=== PATIENT | female | born 1970 | race Caucasian/White ===

== ENCOUNTER 2019-03-08 15:14 | Emergency (ER) | payer OTHER ==
[2019-03-08] MEDS ORDERED: IV NORMAL SALINE 1,000ML 1,000 ML IV SCH (15:48)
--- NOTE | 2019-03-08 15:56 | PHYS DOC ---
Past History Past Medical History: Cancer, Depression, Other Past Surgical History: Hysterectomy, Oophorectomy, Other Smoking: Non-smoker Alcohol Use: Occasionally Drug Use: None Adult General Chief Complaint Chief Complaint: ABDOMINAL PAIN HPI HPI Patient is a 48-year-old female presents complaining of severe lower abdominal pain. It started this morning, it has been waxing and waning. Movement seems to make it a little bit worse. Severe pain on the car ride here. Some nausea without vomiting. No diarrhea. No vaginal bleeding. No dysuria. She does have a history of ovarian, cervical, and uterine cancer and is post hysterectomy. She still has her appendix. She has never had pain like this before. Pain does radiate into her back. She reports it feels like labor pains. She took an ibuprofen 800 mg tablet this morning without any significant improvement in the discomfort.[] Review of Systems Review of Systems Constitutional: Denies fever or chills [] Eyes: Denies change in visual acuity, redness, or eye pain [] HENT: Denies nasal congestion or sore throat [] Respiratory: Denies cough or shortness of breath [] Cardiovascular: No additional information not addressed in HPI [] GI: Denies abdominal pain, nausea, vomiting, bloody stools or diarrhea [] : Denies dysuria or hematuria [] Musculoskeletal: Denies back pain or joint pain [] Integument: Denies rash or skin lesions [] Neurologic: Denies headache, focal weakness or sensory changes [] Endocrine: Denies polyuria or polydipsia [] All other systems were reviewed and found to be within normal limits, except as documented in this note. Allergies Allergies Allergies Coded Allergies Type Severity Reaction Last Updated Verified cephalexin Allergy Unknown 03/08/19 Yes Physical Exam Physical Exam Constitutional: Well developed, well nourished, mild to moderate discomfort, non-toxic appearance. [] HENT: Normocephalic, atraumatic, bilateral external ears normal, oropharynx moist, no oral exudates, nose normal. [] Eyes: PERRLA, EOMI, conjunctiva normal, no discharge. [] Neck: Normal range of motion, no tenderness, supple, no stridor. [] Cardiovascular:Heart rate regular rhythm, no murmur [] Lungs & Thorax: Bilateral breath sounds clear to auscultation [] Abdomen: Bowel sounds normal, soft, tenderness in the lower abdomen, rebound is present, no significant guarding, no rigidity, able to sit up and lay back without any significant difficulty, no masses, no pulsatile masses. [] Skin: Warm, dry, no erythema, no rash. [] Back: No tenderness, no CVA tenderness. [] Extremities: No tenderness, no cyanosis, no clubbing, ROM intact, no edema. [] Neurologic: Alert and oriented X 3, normal motor function, normal sensory function, no focal deficits noted. [] Psychologic: Affect normal, judgement normal, mood normal. [] Current Patient Data Vital Signs Vital Signs Date Time Temp Pulse Resp B/P (MAP) Pulse Ox O2 Delivery O2 Flow Rate FiO2 03/08/19 15:15 98.6 90 18 99 Room Air EKG EKG [] Radiology/Procedures Radiology/Procedures PROCEDURE: CT ABD PELV W/ORAL&IV CONTRAST CT scan of the abdomen and pelvis with contrast 03/08/2019 CLINICAL HISTORY: Severe lower abdominal pain. TECHNIQUE: After the oral and intravenous administration of contrast, contiguous, 5 mm axial sections were obtained through the abdomen and pelvis. 75 cc of Omnipaque 300 were administered intravenously during this examination. One or more of the following individualized dose reduction techniques were utilized for this study: 1. Automated exposure control. 2. Adjustment of the mA and/or kV according to patient size. 3. Use of iterative reconstruction technique. FINDINGS: Comparison study is dated 11/08/2010. Images through the lung bases are within normal limits. A 1.4 cm rounded low-attenuation lesion is seen involving the left lobe of the liver consistent with a hepatic cyst. The spleen, pancreas, adrenal glands and kidneys are within normal limits. Atherosclerotic calcification of the abdominal aorta is seen. The abdominal aorta tapers normally. No free fluid or free air is seen within the abdomen. There is no evidence of bowel obstruction. The appendix is well-visualized and is within normal limits. Multiple diverticula are seen involving the sigmoid colon. Focal wall thickening is seen involving the distal sigmoid colon. Increased density is seen within the adjacent fat. These findings are consistent with acute diverticulitis. No abnormal fluid collection is seen to suggest evidence of an abscess. Images through the pelvis demonstrate the urinary bladder with urine. Calcifications are seen within the pelvis consistent with phleboliths. No free fluid is seen. Minimal S-shaped curvature of the thoracolumbar spine is noted. Degenerative changes are seen involving lower thoracic and throughout the lumbar spine and both hips. IMPRESSION: Findings are seen consistent with sigmoid diverticulitis. No abscess is seen.[] Course & Med Decision Making Course & Med Decision Making Pertinent Labs and Imaging studies reviewed. (See chart for details) ED course: Patient arrived, was placed in bed, and tolerated exam well. She was able to tolerate oral contrast, and was transported to and from [place] with any complications. After the return of the laboratory and imaging findings, these were discussed with the patient and her partner, both of whom voiced understanding. She was given additional doses of pain medicine while in the emergency department as well as antispasmodics. Patient relates that her mother also has a history of diverticulitis. She further relates that she ate popcorn a day or 2 prior to the onset of this discomfort. She was discharged in improved condition with all questions answered. Medical decision making: Patient appears to have diverticulitis without any evidence of an obstruction, no perforation, no abscess, no identified need for surgical intervention. No evidence of kidney stone, renal failure, nor appendicitis.[] Dragon Disclaimer Dragon Disclaimer This electronic medical record was generated, in whole or in part, using a voice recognition dictation system. Departure Departure: Impression: Primary Impression: Diverticulitis Disposition: 01 HOME, SELF-CARE Condition: IMPROVED Referrals: JENN YAÑEZ PA-C (PCP) Follow-up in 2 days Patient Instructions: Diverticulitis Additional Instructions: Drink plenty fluids. Eat a high-fiber diet. Avoid nuts and seeds. Take your medication as prescribed. Follow-up with your regular doctor in 2 days. Return to the ER if worsening pain, unable to tolerate liquids, or any other concerns. Scripts Polyethylene Glycol 3350 (MIRALAX) 119 Gm Powder 17 GM PO DAILY for constipation, #527 GM Prov: BRITNEY ARIAS DO 03/08/19 Metoclopramide Hcl (REGLAN) 10 Mg Tablet 10 MG PO QID for nausea and vomiting, #30 TAB Prov: BRITNEY ARIAS DO 03/08/19 Metronidazole (FLAGYL) 500 Mg Tablet 500 MG PO QID for diverticulitis for 10 Days, #40 TAB Prov: BRITNEY ARIAS DO 03/08/19 Hydrocodone Bit/Acetaminophen (NORCO 5-325 TABLET) 1 Each Tablet 1-2 TAB PO Q4-6HRS for severe pain, #20 TAB Prov: BRITNEY ARIAS DO 03/08/19 Meclizine Hcl (MECLIZINE HCL) 25 Mg Tablet 1 TAB PO PRN TID for vertigo, #30 TAB Prov: BRITNEY ARIAS DO 03/08/19 Hyoscyamine Sulfate (LEVSIN) 0.125 Mg Tablet 0.125 MG PO QID for abdominal pain/cramping, #30 TAB Prov: BRITNEY ARIAS DO 03/08/19 Sulfamethoxazole/Trimethoprim (BACTRIM DS TABLET) 1 Each Tablet 1 TAB PO BID for diverticulitis, #20 TAB Prov: BRITNEY ARIAS DO 03/08/19 BRITNEY ARIAS DO Mar 08, 2019 15:56
[2019-03-08 15:59] LABS: CLARITY,URINE CLEAR; COLOR,URINE YELLOW
[2019-03-08 16:00] LABS: BACTERIA,URINE 0 /HPF (0-FEW); BILIRUBIN,URINE NEG (NEG); GLUCOSE,URINE NEG (NEG); NITRITE,URINE NEG (NEG); RBC,URINE 0 /HPF (0-2); SQUAMOUS EPITHELIAL CELL,UR OCC /LPF; UROBILINOGEN,URINE 0.2 mg/dL (0.2 mg/dL); WBC,URINE OCC /HPF (0-4)
[2019-03-08] MEDS ORDERED: ONDANSETRON PF 4 MG/2 ML VIAL. IV ONE ×2 (16:00→17:30)
[2019-03-08] MEDS: MORPHINE SULFATE 4 MG/ML DISP.SYRIN. IV/SQ PRN ×2 (16:05→17:20)
[2019-03-08 16:10] LABS: BASO # 0.1 x10^3/uL (0.0-0.2); BASO % 1 % (0-3); EOS # 0.1 x10^3/uL (0.0-0.7); EOS % 2 % (0-3); HEMATOCRIT 40.5 % (36.0-47.0); HEMOGLOBIN 13.3 g/dL (12.0-15.5); LYMPH # 1.8 x10^3/uL (1.0-4.8); LYMPH % 23 % (24-48); MEAN CORPUSCULAR HEMOGLOBIN 28 pg (25-35); MEAN CORPUSCULAR HGB CONC 33 g/dL (31-37); MEAN CORPUSCULAR VOLUME 86 fL (79-100); MONO # 0.6 x10^3/uL (0.0-1.1); MONO % 7 % (0-9); NEUT # 5.2 x10^3uL (1.8-7.7); NEUT % 67 % (31-73); PLATELET COUNT 297 x10^3/uL (140-400); RED BLOOD COUNT 4.72 x10^6/uL (3.50-5.40); RED CELL DISTRIBUTION WIDTH 13.9 % (11.5-14.5); WHITE BLOOD COUNT 7.8 x10^3/uL (4.0-11.0)
[2019-03-08] MEDS ORDERED: CONTRAST GIVEN MC PRN (16:15)
[2019-03-08 16:26] LABS: ALBUMIN 4.1 g/dL (3.4-5.0); ALBUMIN/GLOBULIN RATIO 1.3 (1.0-1.7); CALCIUM 8.9 mg/dL (8.5-10.1); CREATININE 0.7 mg/dL (0.6-1.0); GFR 88.9; TOTAL BILIRUBIN 0.3 mg/dL (0.2-1.0); TOTAL PROTEIN 7.3 g/dL (6.4-8.2)
[2019-03-08] MEDS ORDERED: IOHEXOL 300 MG/ML 75 ML VIAL. IV ONE (16:30)
[2019-03-08] MEDS ORDERED: IOHEXOL 240 MG/ML 50ML VIAL. PO ONE (16:30)
--- NOTE | 2019-03-08 17:24 | RAD ---
CT scan of the abdomen and pelvis with contrast 03/08/2019 CLINICAL HISTORY: Severe lower abdominal pain. TECHNIQUE: After the oral and intravenous administration of contrast, contiguous, 5 mm axial sections were obtained through the abdomen and pelvis. 75 cc of Omnipaque 300 were administered intravenously during this examination. One or more of the following individualized dose reduction techniques were utilized for this study: 1. Automated exposure control. 2. Adjustment of the mA and/or kV according to patient size. 3. Use of iterative reconstruction technique. FINDINGS: Comparison study is dated 11/08/2010. Images through the lung bases are within normal limits. A 1.4 cm rounded low-attenuation lesion is seen involving the left lobe of the liver consistent with a hepatic cyst. The spleen, pancreas, adrenal glands and kidneys are within normal limits. Atherosclerotic calcification of the abdominal aorta is seen. The abdominal aorta tapers normally. No free fluid or free air is seen within the abdomen. There is no evidence of bowel obstruction. The appendix is well-visualized and is within normal limits. Multiple diverticula are seen involving the sigmoid colon. Focal wall thickening is seen involving the distal sigmoid colon. Increased density is seen within the adjacent fat. These findings are consistent with acute diverticulitis. No abnormal fluid collection is seen to suggest evidence of an abscess. Images through the pelvis demonstrate the urinary bladder with urine. Calcifications are seen within the pelvis consistent with phleboliths. No free fluid is seen. Minimal S-shaped curvature of the thoracolumbar spine is noted. Degenerative changes are seen involving lower thoracic and throughout the lumbar spine and both hips. IMPRESSION: Findings are seen consistent with sigmoid diverticulitis. No abscess is seen. Electronically signed by: Jason Morgan MD (03/08/2019 5:22 PM) [facility]
[2019-03-08] MEDS ORDERED: METR500T PO (17:41)
[2019-03-08] MEDS ORDERED: SULF1TAB24 PO (17:41)
[2019-03-08] MEDS ORDERED: HYDR-3165 PO (17:41)
[2019-03-08] MEDS ORDERED: HYOS0.1264 PO (17:41)
[2019-03-08] MEDS ORDERED: METO10TA81 PO (17:41)
[2019-03-08] MEDS ORDERED: POLY119P4 PO (17:41)
[2019-03-08] MEDS ORDERED: MECL25TA3 PO (17:41)
[2019-03-08] MEDS ORDERED: HYOSCYAMINE 0.125 MG TAB.RAPDIS PO ONE (17:45)
[2019-03-08] MEDS ORDERED: MELO7.5T29 PO (17:48)
[2019-03-08 18:02] VITALS: BP 110/73
== END 2019-03-08 18:06 | disposition home or self-care (01) ==
LOC: ER 15:14
DX: K57.32 Diverticulitis of large intestine without perforation or abscess without bleeding (principal); F32.9 Major depressive disorder, single episode, unspecified; Z90.710 Acquired absence of both cervix and uterus; Z88.1 Allergy status to other antibiotic agents
CPT/HCPCS: 36415; 74177; 80053; 81001; 83690; 85025; 85610; 96372; 96374; 96375; 96376; 99285; J2270; J2405; Q9966; Q9967; J7030

== ENCOUNTER 2019-05-22 17:17 | Emergency (ER) | payer OTHER ==
[~2019-05-22 17:17] MED LIST: HYDR-3165 PO; HYOS0.1264 PO; MECL25TA3 PO; MELO7.5T29 PO; METO10TA81 PO; METR500T PO; POLY119P4 PO; SULF1TAB24 PO
--- NOTE | 2019-05-22 17:45 | PHYS DOC ---
Past History Past Medical History: Cancer, Depression, Other (BRITNEY ARIAS DO) Past Surgical History: Hysterectomy, Oophorectomy, Other (BRITNEY ARIAS DO) Smoking: Non-smoker Alcohol Use: Occasionally Drug Use: None (BRITNEY ARIAS DO) Adult General Chief Complaint Chief Complaint: LOWER EXT PAIN HPI HPI Patient is a 49-year-old female presents complaining of right lower extremity pain, swelling, and cramping that started last night. Patient has a history of uterine cancer. She has not had any previous history of DVT. No recent surgeries. Feels more like a cramp in nature and moderate discomfort. Denies any trauma. Denies problems walking other than feeling like her leg is twisting in words. She is able to ambulate. No numbness or tingling. Increased pain with movement.[] (BRITNEY ARIAS DO) Review of Systems Review of Systems Constitutional: Denies fever or chills [] Eyes: Denies change in visual acuity, redness, or eye pain [] HENT: Denies nasal congestion or sore throat [] Respiratory: Denies cough or shortness of breath [] Cardiovascular: No chest pain or palpitations[] GI: Denies abdominal pain, nausea, vomiting, bloody stools or diarrhea [] : Denies dysuria or hematuria [] Musculoskeletal: Denies back pain, see history of present illness[] Integument: Denies rash or skin lesions [] Neurologic: Denies headache, focal weakness or sensory changes [] Endocrine: Denies polyuria or polydipsia [] All other systems were reviewed and found to be within normal limits, except as documented in this note. (BRITNEY ARIAS DO) Allergies Allergies Allergies Coded Allergies Type Severity Reaction Last Updated Verified cephalexin Allergy Unknown 03/08/19 Yes (BRITNEY AIRAS DO) Physical Exam Physical Exam Constitutional: Well developed, well nourished, no acute distress, non-toxic appearance. [] HENT: Normocephalic, atraumatic, bilateral external ears normal, oropharynx moist, no oral exudates, nose normal. [] Eyes: PERRLA, EOMI, conjunctiva normal, no discharge. [] Neck: Normal range of motion, no tenderness, supple, no stridor. [] Cardiovascular:Heart rate regular rhythm, no murmur [] Lungs & Thorax: Bilateral breath sounds clear to auscultation [] Abdomen: Bowel sounds normal, soft, no tenderness, no masses, no pulsatile m asses. [] Skin: Warm, dry, no erythema, no rash. [] Back: No tenderness, no CVA tenderness. [] Extremities: Right lower extremity shows some diffuse swelling. She is distally neurovascularly intact. No pain with axial compression of any of the long bones. Mild discomfort with Homans sign. Full active range of motion in the knee, hip, ankle, and toes. Measurement of the right calf is 39 cm circumference. Measurement of the left calf is 39.5 cm circumference. The other 3 external show: No tenderness, no cyanosis, no clubbing, ROM intact, no edema. [] Neurologic: Alert and oriented X 3, normal motor function, normal sensory function, no focal deficits noted. [] Psychologic: Affect normal, judgement normal, mood normal. [] (BRITNEY ARIAS DO) EKG EKG [] (BRITNEY ARIAS DO) Radiology/Procedures Radiology/Procedures [] (BRITNEY ARIAS DO) Impressions: CLINICAL HISTORY: right lower extremity pain and bruising COMPARISON: None available. TECHNIQUE: Ultrasound evaluation of the right leg was performed from the groin to the upper calf with gr scale, spectral and color doppler evaluation. FINDINGS: The right common femoral vein, and femoral vein, including the saphenous-femoral junction are normal in appearance. Color and spectral Doppler evaluation demonstrates normal spontaneous flow, augmentation and phasicity. The right popliteal vein and visualized calf veins also demonstrate normal compressibility and flow. IMPRESSION: No evidence for right lower extremity DVT Electronically signed by: Reggie Long MD (05/22/2019 7:02 PM) [facility] DICTATED AND SIGNED BY: REGGIE LONG MD DATE: 05/22/191901 CC: LISA LANE DO; NATANAEL GUZMAN; BRITNEY ARIAS DO ~ (LISA LNAE DO) Course & Med Decision Making Course & Med Decision Making Pertinent Labs and Imaging studies reviewed. (See chart for details) ED course: Patient arrived, was placed in bed, and tolerated exam well. At the time of this dictation laboratory and imaging findings are still pending. Patient care was endorsed to the nighttime physician at 1800.[] (BRITNEY ARIAS DO) Course & Med Decision Making The patient's labs are unremarkable. The ultrasound was negative for DVT. These results are reassuring to the patient. Based on the bruising on her leg, I'm assuming this was a superficial vessel that ruptured or leaking for some reason. Not sure if this would be the entire cause for the muscle spasm she had, but had no other evidence for why she had muscle spasm or the bruising. She will follow up with her primary care physician as needed. She is stable for discharge at this time. (LISA LANE DO) Dragon Disclaimer Dragon Disclaimer This electronic medical record was generated, in whole or in part, using a voice recognition dictation system. (BRITNEY ARIAS DO) Departure Departure: Impression: Primary Impression: Lower extremity pain Disposition: HOME, SELF-CARE Condition: STABLE Referrals: NATANAEL GUZMAN (PCP) Patient Instructions: Leg Cramps Problem Qualifiers Primary Impression: Lower extremity pain Laterality: right Qualified Codes: M79.604 - Pain in right leg BRITNEY ARIAS DO May 22, 2019 17:[address] DO May 22, 2019 19:09
[2019-05-22 18:11] LABS: BASO % 1 % (0-3); EOS # 0.1 x10^3/uL (0.0-0.7); EOS % 2 % (0-3); HEMATOCRIT 38.5 % (36.0-47.0); HEMOGLOBIN 12.8 g/dL (12.0-15.5); LYMPH # 2.3 x10^3/uL (1.0-4.8); LYMPH % 30 % (24-48); MEAN CORPUSCULAR HEMOGLOBIN 29 pg (25-35); MEAN CORPUSCULAR HGB CONC 33 g/dL (31-37); MEAN CORPUSCULAR VOLUME 87 fL (79-100); MONO # 0.7 x10^3/uL (0.0-1.1); MONO % 9 % (0-9); NEUT # 4.5 x10^3uL (1.8-7.7); NEUT % 58 % (31-73); PLATELET COUNT 291 x10^3/uL (140-400); RED BLOOD COUNT 4.44 x10^6/uL (3.50-5.40); RED CELL DISTRIBUTION WIDTH 14.3 % (11.5-14.5); WHITE BLOOD COUNT 7.7 x10^3/uL (4.0-11.0)
[2019-05-22 18:17] LABS: CALCIUM 8.8 mg/dL (8.5-10.1); CREATININE 0.8 mg/dL (0.6-1.0); GFR 75.9; MAGNESIUM 1.9 mg/dL (1.8-2.4)
[2019-05-22 18:34] VITALS: BP 121/83
--- NOTE | 2019-05-22 19:04 | RAD ---
CLINICAL HISTORY: right lower extremity pain and bruising COMPARISON: None available. TECHNIQUE: Ultrasound evaluation of the right leg was performed from the groin to the upper calf with gr scale, spectral and color doppler evaluation. FINDINGS: The right common femoral vein, and femoral vein, including the saphenous-femoral junction are normal in appearance. Color and spectral Doppler evaluation demonstrates normal spontaneous flow, augmentation and phasicity. The right popliteal vein and visualized calf veins also demonstrate normal compressibility and flow. IMPRESSION: No evidence for right lower extremity DVT Electronically signed by: Reggie Jacobsen MD (05/22/2019 7:02 PM) [facility]
== END 2019-05-22 19:25 | disposition home or self-care (01) ==
LOC: ER 17:23
DX: M79.604 Pain in right leg (principal); R22.41 Localized swelling, mass and lump, right lower limb; Z88.1 Allergy status to other antibiotic agents
CPT/HCPCS: 36415; 80048; 83735; 85025; 85610; 85730; 93971; 99285

== ENCOUNTER 2019-10-12 16:40 | Emergency (ER) | payer OTHER ==
[~2019-10-12 16:40] MED LIST changes: +MECL-75 PO; -MECL25TA3 PO
[2019-10-12] MEDS ORDERED: IV NORMAL SALINE 1,000ML 1,000 ML IV ONE (17:00)
--- NOTE | 2019-10-12 17:37 | PHYS DOC ---
Past History Past Medical History: Cancer, Depression Past Surgical History: Cancer Surgery Smoking: Non-smoker Alcohol Use: None Drug Use: None Adult General Chief Complaint Chief Complaint: RAPID HEART RATE HPI HPI 49-year-old female presents with rapid heart beat and abdominal pain. She recently had an ileostomy and reversal. She went to see her primary doctor because she was having increasing lower abdominal pain. There were concerned for potential infection. She did not get CT yet due to preapproval requirement. She presents emergency room today because she started to have extremely high heart rate 2 hours ago. She was just sitting on the couch when this started. She has no history of previous high heart rates. No history of arrhythmia. She denies fever or chills. The patient did have a significant infection the past with no fever. Review of Systems Review of Systems Constitutional: Denies fever or chills [] Eyes: Denies change in visual acuity, redness, or eye pain [] HENT: Denies nasal congestion or sore throat [] Respiratory: Denies cough or shortness of breath [] Cardiovascular: No additional information not addressed in HPI [] GI: Lower abdominal pain. Denies nausea, vomiting, bloody stools or diarrhea [] : Denies dysuria or hematuria [] Musculoskeletal: Denies back pain or joint pain [] Integument: Denies rash or skin lesions [] Neurologic: Denies headache, focal weakness or sensory changes [] Endocrine: Denies polyuria or polydipsia [] All other systems were reviewed and found to be within normal limits, except as documented in this note. Current Medications Current Medications Current Medications Medications (Trade) Dose Ordered Sig/[facility] Start Time Stop Time Status Last Admin Dose Admin Sodium Chloride 1,000 ml @ 1,000 mls/hr 1X ONCE 10/12/19 17:00 10/12/19 17:59 Allergies Allergies Allergies Coded Allergies Type Severity Reaction Last Updated Verified cephalexin Allergy Unknown 03/08/19 Yes Physical Exam Physical Exam Constitutional: Well developed, well nourished, mild acute distress, non-toxic appearance. [] HENT: Normocephalic, atraumatic, bilateral external ears normal, oropharynx moist, no oral exudates, nose normal. [] Eyes: PERRLA, EOMI, conjunctiva normal, no discharge. [] Neck: Normal range of motion, no tenderness, supple, no stridor. [] Cardiovascular:Heart rate regular rhythm, no murmur [] Lungs & Thorax: Bilateral breath sounds clear to auscultation [] Abdomen: Bowel sounds normal, soft, lower quadrant tenderness, no masses, no pulsatile masses. [] Skin: Warm, dry, no erythema, no rash. [] Back: No tenderness, no CVA tenderness. [] Extremities: No tenderness, no cyanosis, no clubbing, ROM intact, no edema. [] Neurologic: Alert and oriented X 3, normal motor function, normal sensory function, no focal deficits noted. [] Psychologic: Affect normal, judgement normal, mood normal. [] EKG EKG Sinus tachycardia, rate 124, normal axis, no ST elevations or depressions.[] Radiology/Procedures Radiology/Procedures [] Impressions: Study: CT abdomen/pelvis with intravenous contrast Indication: Lower abdominal pain status post ileostomy reversal. Comparison: 03/08/2019 Technique: Helical CT imaging performed of the abdomen and pelvis after the intravenous administration of 75 cc Omnipaque 300 contrast. Sagittal and coronal reformats were obtained. One or more of the following individualized dose reduction techniques were utilized for this examination: 1. Automated exposure control 2. Adjustment of the mA and/or kV according to patient size 3. Use of iterative reconstruction technique. Findings: Unremarkable lower lungs and visualized heart. Unchanged low-attenuation focus within the left hepatic lobe. Unremarkable gallbladder. No abnormality seen to involve the pancreas, spleen or adrenal glands. No newly seen abnormality of the kidneys. No hydroureteronephrosis. Unremarkable urinary bladder. The uterus is absent. No adnexal mass. Small amount of air within the vaginal cuff, image 68 series 2, felt unlikely related to fistulization with the adjacent colon though this is not entirely excluded. Distal colonic anastomosis. Small bowel anastomosis at the pelvis. Surgical changes along the stomach. No findings of small bowel obstruction. The small bowel is thick-walled in the region of the anastomosis with surrounding inflammatory changes such as seen on image 61 series 2. Small foci of air extend along suture material such as seen on images 59 and 60 series 2. No fluid collection seen at this location. Minimal wall thickening of the sigmoid colon adjacent to the mildly thick-walled small bowel. A few diverticuli are noted without findings of diverticulitis. No colonic obstruction, pneumatosis or perforation. Mild scattered vascular calcifications. A few subcentimeter mesenteric lymph nodes do not meet pathologic criteria based on size. No free pelvic fluid. Right lower quadrant ventral subcutaneous fat stranding likely scarring/mild residual inflammation at the site of prior ileostomy. No acute osseous abnormality. Scattered degenerative changes. Impression: 1. Sequela of ileostomy reversal. At the small bowel anastomosis within the pelvis, there is localized inflammatory changes, segmental small bowel wall thickening and small foci of air extending along suture material. No free fluid or fluid collection. Given reported surgery on September 14, the small foci of air with surrounding inflammatory changes at the anastomosis could potentially represent a contained perforation. It is possible however that the air is within a neck of small bowel that was partially excluded during the anastomosis. The adjacent colon exhibits scattered diverticuli but without findings to suggest diverticulitis. No small bowel obstruction. 2. Surgical changes of the stomach without complicating features. 3. Additional chronic findings as detailed in the body of the report. Electronically signed by: SARA BLACK MD (10/12/2019 6:51 PM) [facility] DICTATED AND SIGNED BY: SARA BLACK MD DATE: 10/12/191850 CC: LISA LANE DO; NATANAEL GUZMAN ~ Course & Med Decision Making Course & Med Decision Making Pertinent Labs and Imaging studies reviewed. (See chart for details) The patient's workup is pending. I'm signing the patient out to Dr. Ordoñez at 1830. [] Dragon Disclaimer Dragon Disclaimer This electronic medical record was generated, in whole or in part, using a voice recognition dictation system. Departure Departure: Disposition: HOME/RESIDENCE PRIOR TO ADM Condition: STABLE Referrals: NATANAEL GUZMAN (PCP) LISA LANE DO Oct 12, 2019 17:37
[2019-10-12] MEDS ORDERED: IOHEXOL 300 MG/ML 75 ML VIAL. IV ONE (17:45)
[2019-10-12] MEDS ORDERED: ONDANSETRON PF 4 MG/2 ML VIAL. IVP ONE (18:00)
[2019-10-12] MEDS ORDERED: HYDROmorphone PF 1 MG/ML DISP.SYRIN IV ONE (18:00)
[2019-10-12 18:26] LABS: BASO # 0.1 x10^3/uL (0.0-0.2); BASO % 1 % (0-3); EOS # 0.1 x10^3/uL (0.0-0.7); EOS % 1 % (0-3); HEMATOCRIT 40.5 % (36.0-47.0); HEMOGLOBIN 12.9 g/dL (12.0-15.5); LYMPH # 1.4 x10^3/uL (1.0-4.8); LYMPH % 23 % (24-48); MEAN CORPUSCULAR HEMOGLOBIN 27 pg (25-35); MEAN CORPUSCULAR HGB CONC 32 g/dL (31-37); MEAN CORPUSCULAR VOLUME 85 fL (79-100); MONO # 0.4 x10^3/uL (0.0-1.1); MONO % 7 % (0-9); NEUT # 4.3 x10^3uL (1.8-7.7); NEUT % 68 % (31-73); PLATELET COUNT 265 x10^3/uL (140-400); RED BLOOD COUNT 4.78 x10^6/uL (3.50-5.40); RED CELL DISTRIBUTION WIDTH 13.6 % (11.5-14.5); WHITE BLOOD COUNT 6.4 x10^3/uL (4.0-11.0)
[2019-10-12 18:35] LABS: CALCIUM 9.2 mg/dL (8.5-10.1); CREATININE 0.7 mg/dL (0.6-1.0); GFR 88.6; POTASSIUM 3.2 mmol/L (3.5-5.1)
[2019-10-12 18:41] LABS: ALBUMIN 3.7 g/dL (3.4-5.0); ALBUMIN/GLOBULIN RATIO 1.2 (1.0-1.7); TOTAL BILIRUBIN 0.3 mg/dL (0.2-1.0); TOTAL PROTEIN 6.7 g/dL (6.4-8.2)
--- NOTE | 2019-10-12 18:54 | RAD ---
Study: CT abdomen/pelvis with intravenous contrast Indication: Lower abdominal pain status post ileostomy reversal. Comparison: 03/08/2019 Technique: Helical CT imaging performed of the abdomen and pelvis after the intravenous administration of 75 cc Omnipaque 300 contrast. Sagittal and coronal reformats were obtained. One or more of the following individualized dose reduction techniques were utilized for this examination: 1. Automated exposure control 2. Adjustment of the mA and/or kV according to patient size 3. Use of iterative reconstruction technique. Findings: Unremarkable lower lungs and visualized heart. Unchanged low-attenuation focus within the left hepatic lobe. Unremarkable gallbladder. No abnormality seen to involve the pancreas, spleen or adrenal glands. No newly seen abnormality of the kidneys. No hydroureteronephrosis. Unremarkable urinary bladder. The uterus is absent. No adnexal mass. Small amount of air within the vaginal cuff, image 68 series 2, felt unlikely related to fistulization with the adjacent colon though this is not entirely excluded. Distal colonic anastomosis. Small bowel anastomosis at the pelvis. Surgical changes along the stomach. No findings of small bowel obstruction. The small bowel is thick-walled in the region of the anastomosis with surrounding inflammatory changes such as seen on image 61 series 2. Small foci of air extend along suture material such as seen on images 59 and 60 series 2. No fluid collection seen at this location. Minimal wall thickening of the sigmoid colon adjacent to the mildly thick-walled small bowel. A few diverticuli are noted without findings of diverticulitis. No colonic obstruction, pneumatosis or perforation. Mild scattered vascular calcifications. A few subcentimeter mesenteric lymph nodes do not meet pathologic criteria based on size. No free pelvic fluid. Right lower quadrant ventral subcutaneous fat stranding likely scarring/mild residual inflammation at the site of prior ileostomy. No acute osseous abnormality. Scattered degenerative changes. Impression: 1. Sequela of ileostomy reversal. At the small bowel anastomosis within the pelvis, there is localized inflammatory changes, segmental small bowel wall thickening and small foci of air extending along suture material. No free fluid or fluid collection. Given reported surgery on September 14, the small foci of air with surrounding inflammatory changes at the anastomosis could potentially represent a contained perforation. It is possible however that the air is within a neck of small bowel that was partially excluded during the anastomosis. The adjacent colon exhibits scattered diverticuli but without findings to suggest diverticulitis. No small bowel obstruction. 2. Surgical changes of the stomach without complicating features. 3. Additional chronic findings as detailed in the body of the report. Electronically signed by: SARA BLACK MD (10/12/2019 6:51 PM) [facility] [place]
[2019-10-12] MEDS ORDERED: METOCLOPRAMIDE HCL 10 MG/2 ML VIAL. IV ONE (21:00)
[2019-10-12] MEDS ORDERED: diphenhydrAMINE 50 MG/ML VIAL IVP ONE (21:00)
[2019-10-12] MEDS ORDERED: PIPERACILLIN/TAZOBACTAM 3.375 GM in IV NORMAL SALINE 50ML 50 ML IV ONE (21:15)
[2019-10-12 22:39] VITALS: BP 96/55
--- NOTE | 2019-10-13 00:53 | EKG ---
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
== END 2019-10-12 22:59 | disposition short-term general hospital (02) ==
LOC: ER 16:40
DX: K63.1 Perforation of intestine (nontraumatic) (principal); F32.9 Major depressive disorder, single episode, unspecified; Z88.1 Allergy status to other antibiotic agents
CPT/HCPCS: 36415; 74177; 80053; 83605; 84484; 85025; 93005; 96365; 96366; 96375; 99285; J1170; J1200; J2405; J2543; J2765; J3010; Q9967; J7030

== ENCOUNTER 2021-03-06 15:05 | Emergency (ER) | payer OTHER ==
[~2021-03-06] VITALS: Ht 165.1 cm; Wt 80.1 kg
[2021-03-06] MEDS ORDERED: HYDROmorphone PF 1 MG/ML DISP.SYRIN ONE (15:48)
[2021-03-06] MEDS ORDERED: IOHEXOL 300 MG/ML 75 ML VIAL. IV ONE (16:00)
[2021-03-06] MEDS ORDERED: HYDROmorphone PF 1 MG/ML DISP.SYRIN IVP ONE ×2 (16:00→16:30)
[2021-03-06] MEDS ORDERED: CONTRAST GIVEN. MC PRN (16:00)
[2021-03-06 16:04] LABS: BASO # 0.1 x10^3/uL (0.0-0.2); BASO % 1 % (0-3); EOS # 0.1 x10^3/uL (0.0-0.7); EOS % 1 % (0-3); HEMATOCRIT 39.2 % (36.0-47.0); HEMOGLOBIN 13.1 g/dL (12.0-15.5); LYMPH # 1.9 x10^3/uL (1.0-4.8); LYMPH % 21 % (24-48); MEAN CORPUSCULAR HEMOGLOBIN 30 pg (25-35); MEAN CORPUSCULAR HGB CONC 33 g/dL (31-37); MEAN CORPUSCULAR VOLUME 88 fL (79-100); MONO # 0.7 x10^3/uL (0.0-1.1); MONO % 8 % (0-9); NEUT # 6.2 x10^3uL (1.8-7.7); NEUT % 69 % (31-73); PLATELET COUNT 259 x10^3/uL (140-400); RED BLOOD COUNT 4.43 x10^6/uL (3.50-5.40); RED CELL DISTRIBUTION WIDTH 14.1 % (11.5-14.5); WHITE BLOOD COUNT 8.9 x10^3/uL (4.0-11.0)
[2021-03-06 16:13] LABS: BILIRUBIN,URINE NEG (NEG); CLARITY,URINE CLEAR; COLOR,URINE YELLOW; GLUCOSE,URINE NEG (NEG); NITRITE,URINE NEG (NEG); UROBILINOGEN,URINE 0.2 mg/dL (0.2 mg/dL)
[2021-03-06 16:14] LABS: BACTERIA,URINE 0 /HPF (0-FEW); CALCIUM 9.2 mg/dL (8.5-10.1); CREATININE 0.6 mg/dL (0.6-1.0); GFR 105.4; POTASSIUM 5.2 mmol/L (3.5-5.1); RBC,URINE 0 /HPF (0-2); SQUAMOUS EPITHELIAL CELL,UR OCC /LPF; WBC,URINE 0 /HPF (0-4)
[2021-03-06 16:20] LABS: ALBUMIN/GLOBULIN RATIO 1.3 (1.0-1.7); TOTAL BILIRUBIN 0.6 mg/dL (0.2-1.0); TOTAL PROTEIN 7.2 g/dL (6.4-8.2)
[2021-03-06] MEDS ORDERED: ONDANSETRON PF 4 MG/2 ML VIAL. IVP ONE (16:30)
[2021-03-06] MEDS ORDERED: ONDANSETRON PF 4 MG/2 ML VIAL. ONE (16:31)
--- NOTE | 2021-03-06 16:51 | RAD ---
Exam: CT abdomen/pelvis with intravenous contrast Indication: Severe right upper quadrant pain, right flank pain. History of colon and small bowel rese ction. Cervical cancer. Comparison: CT abdomen pelvis 10/12/2019 Technique: Helical CT imaging performed of the abdomen and pelvis after the intravenous administratio n of contrast. Sagittal and coronal reformats were obtained. One or more of the following individualized dose reduction techniques were utilized for this examinat ion: 1. Automated exposure control 2. Adjustment of the mA and/or kV according to patient size 3. Use of iterative reconstruction technique. Findings: Lower chest: Mild atelectasis in the lung bases. Heart is normal in size. Liver: There is a 1.8 cm fluid density cyst in the left hepatic lobe. A 4 mm hypodensity in the poste rior right hepatic lobe is too small to characterize. Gallbladder/Biliary Tree: Vague hyperdense material layering in the gallbladder suspicious for sludge . Bile ducts are within normal limits. Pancreas: Normal. Spleen: Normal. Adrenal Glands: Normal. Kidneys/Ureters/Bladder: Kidneys, ureters, and bladder are normal. There are bilateral peripelvic cys ts. Reproductive Organs: Uterus is surgically absent. No adnexal mass Stomach, small bowel, and colon: There are surgical changes of sleeve gastrectomy. The small bowel is normal. Surgical changes of the colon with an anastomosis in the cecum and in the rectum. Vasculature: Abdominal aorta is normal in caliber. Lymph Nodes: No lymphadenopathy. Peritoneum and retroperitoneum: No free fluid or free air. Bones: No acute osseous abnormality. Miscellaneous: There is a new large ventral hernia with a 6.7 cm opening containing normal-appearing loops of small bowel. No evidence of complication. There is soft tissue scarring in the right lower q uadrant from previous ileostomy. Impression: 1. No acute abnormality in the abdomen and pelvis. 2. New large ventral hernia containing loops of small bowel. No evidence of bowel obstruction or oth er acute complication. 3. Probable sludge in the gallbladder. 4. Surgical changes of the stomach, small bowel, and colon. 5. Probable hepatic cysts. Electronically signed by: Laney Lai MD (03/06/2021 4:49 PM) [id number]
--- NOTE | 2021-03-06 16:52 | EKG ---
[address] [address] Test Date: 2021-03-06 Test Time: 16:19:55 Pat Name: EPIFANIO VÁSQUEZ Department: Room: Gender: F Information Assurance: LINH : 1970 Requested By: JUAN AMADO Order Number: [id number] Reading MD: Measurements Intervals [place] Rate: 73 P: 49 NV: 126 QRS: 6 QRSD: 94 T: 0 QT: 402 QTc: 447 Interpretive Statements SINUS RHYTHM LOW LIMB LEAD VOLTAGE T ABNORMALITY IN INFERIOR LEADS ABNORMAL ECG RI6.02 No previous ECG available for comparison
--- NOTE | 2021-03-06 17:02 | PHYS DOC ---
Past History Past Medical History: Cancer, Depression, Diverticulitis, Other Additional Past Medical Histor: colonic abscess with adhesions Past Surgical History: Appendectomy, Cancer Surgery, Other Additional Past Surgical Histo: ileostomy, ileostomy reversal Smoking: Non-smoker Alcohol Use: Rarely Drug Use: None Adult General Chief Complaint Chief Complaint: FLANK PAIN HPI HPI Patient is a 50-year-old female presenting for right flank pain. Onset was yesterday without any known inciting event or trauma. Reports she was celebrating holiday weekend and drank x2 beers and x1 glass of wine which she admits is more than she typically ever drinks. Nonetheless, she reports having right flank pain that radiates around to anterior abdomen. Nothing known makes better, deep breaths in, palpation under right rib cage, and certain movements make worse. Timing of symptoms has been constant since onset and exacerbated by factors just mention. Pain is sharp and 10/10 severity in nature. Admits complicated abdominal history, had prior diverticulitis with complications that ultimately required surgical fixation and ileostomy. This surgery course was co mplicated as she developed small bowel obstruction and subsequently had appendectomy during same procedure. Has known midline hernia for which she sees Dr. Martin at [facility] in outpatient setting and has plans for outpatient surgical repair March 24. No fever, dizziness, vision changes, chest pain, ripping or tearing sensation in chest, dysuria, vaginal bleeding Review of Systems Review of Systems Fourteen body systems of review of systems have been reviewed. See HPI for pertinent positives and negative responses, other olvera all other systems are negative, non-pertinent or non-contributory Current Medications Current Medications Current Medications Medications (Trade) Dose Ordered Sig/[facility] Start Time Stop Time Status Last Admin Dose Admin Fentanyl Citrate (Fentanyl 2ml Vial) 100 mcg STK-MED ONCE 03/06/21 16:23 03/06/21 16:24 DC Hydromorphone HCl (Dilaudid) 0.5 mg 1X ONCE 03/06/21 16:30 03/06/21 16:31 DC 03/06/21 16:00 0.5 MG Info (Do NOT chart on this entry -- for MONITORING) 1 each PRN DAILY PRN 03/06/21 16:00 03/08/21 15:59 Iohexol (Omnipaque 300 Mg/ml) 75 ml 1X ONCE 03/06/21 16:00 03/06/21 16:01 DC 03/06/21 16:16 75 ML Ondansetron HCl (Zofran) 4 mg STK-MED ONCE 03/06/21 16:31 03/06/21 16:31 DC Allergies Allergies Allergies Coded Allergies Type Severity Reaction Last Updated Verified cephalexin Allergy Unknown 03/08/19 Yes Physical Exam Physical Exam Constitutional: Well developed, well nourished, tearful and appears in significant pain HENT: Normocephalic, atraumatic, bilateral external ears normal, oropharynx dry, no oral exudates, nose normal. Eyes: PERRLA, EOMI, conjunctiva normal, no discharge. Neck: Normal range of motion, no tenderness, supple, no stridor. Cardiovascular: Heart rate regular, sinus rhythm, no murmurs rubs or gallops Lungs & Thorax: Bilateral breath sounds clear to auscultation Abdomen: Bowel sounds normal, soft, positive Escamilla sign with guarding present, no rebound, midline ventral hernia present without pulsatile masses. Nonsurgical abdomen, no peritoneal signs Skin: Warm, dry, no erythema, no rash. Back: No tenderness, right CVA tenderness Extremities: No tenderness, no cyanosis, no clubbing, ROM intact, no edema. Neurologic: Alert and oriented X 3, grossly normal motor & sensory function, no focal deficits noted. Psychologic: Tearful affect, judgement normal, mood normal. Current Patient Data Vital Signs Vital Signs Date Time Temp Pulse Resp B/P (MAP) Pulse Ox O2 Delivery O2 Flow Rate FiO2 03/06/21 16:25 94 Room Air 03/06/21 15:58 99.0 76 20 149/86 (107) Lab Results Laboratory Tests Test 03/06/21 15:30 White Blood Count 8.9 x10^3/uL (4.0-11.0) Red Blood Count 4.43 x10^6/uL (3.50-5.40) Hemoglobin 13.1 g/dL (12.0-15.5) Hematocrit 39.2 % (36.0-47.0) Mean Corpuscular Volume 88 fL (79-100) Mean Corpuscular Hemoglobin 30 pg (25-35) Mean Corpuscular Hemoglobin Concent 33 g/dL (31-37) Red Cell Distribution Width 14.1 % (11.5-14.5) Platelet Count 259 x10^3/uL (140-400) Neutrophils (%) (Auto) 69 % (31-73) Lymphocytes (%) (Auto) 21 % (24-48) L Monocytes (%) (Auto) 8 % (0-9) Eosinophils (%) (Auto) 1 % (0-3) Basophils (%) (Auto) 1 % (0-3) Neutrophils # (Auto) 6.2 x10^3uL (1.8-7.7) Lymphocytes # (Auto) 1.9 x10^3/uL (1.0-4.8) Monocytes # (Auto) 0.7 x10^3/uL (0.0-1.1) Eosinophils # (Auto) 0.1 x10^3/uL (0.0-0.7) Basophils # (Auto) 0.1 x10^3/uL (0.0-0.2) Urine Collection Type Unknown Urine Color Yellow Urine Clarity Clear Urine pH 6.0 Urine Specific [place] <=1.005 Urine Protein Neg (NEG-TRACE) Urine Glucose (UA) Neg mg/dL (NEG) Urine Ketones (Stick) Neg mg/dL (NEG) Urine Blood Trace (NEG) Urine Nitrite Neg (NEG) Urine Bilirubin Neg (NEG) Urine Urobilinogen Dipstick 0.2 mg/dL (0.2 mg/dL) Urine Leukocyte Esterase Neg (NEG) Urine RBC 0 /HPF (0-2) Urine WBC 0 /HPF (0-4) Urine Squamous Epithelial Cells Occ /LPF Urine Bacteria 0 /HPF (0-FEW) Sodium Level 141 mmol/L (136-145) Potassium Level 5.2 mmol/L (3.5-5.1) H Chloride Level 104 mmol/L (98-107) Carbon Dioxide Level 29 mmol/L (21-32) Anion Gap 8 (6-14) Blood Urea Nitrogen 17 mg/dL (7-20) Creatinine 0.6 mg/dL (0.6-1.0) Estimated GFR (Cockcroft-Gault) 105.4 BUN/Creatinine Ratio 28 (6-20) H Glucose Level 101 mg/dL (70-99) H Calcium Level 9.2 mg/dL (8.5-10.1) Total Bilirubin 0.6 mg/dL (0.2-1.0) Aspartate Amino Transferase (AST) 19 U/L (15-37) Alanine Aminotransferase (ALT) 16 U/L (14-59) Alkaline Phosphatase 94 U/L (46-116) Troponin I Quantitative < 0.017 ng/mL (0-0.055) Total Protein 7.2 g/dL (6.4-8.2) Albumin 4.0 g/dL (3.4-5.0) Albumin/Globulin Ratio 1.3 (1.0-1.7) Lipase 61 U/L (73-393) L EKG EKG EKG ordered and interpreted by myself 1625 hrs. as sinus rhythm at 73 bpm, no axis deviation, no STEMI Radiology/Procedures Radiology/Procedures Exam: CT abdomen/pelvis with intravenous contrast Indication: Severe right upper quadrant pain, right flank pain. History of colon and small bowel resection. Cervical cancer. Comparison: CT abdomen pelvis 10/12/2019 Technique: Helical CT imaging performed of the abdomen and pelvis after the intravenous administration of contrast. Sagittal and coronal reformats were obtained. One or more of the following individualized dose reduction techniques were utilized for this examination: 1. Automated exposure control 2. Adjustment of the mA and/or kV according to patient size 3. Use of iterative reconstruction technique. Findings: Lower chest: Mild atelectasis in the lung bases. Heart is normal in size. Liver: There is a 1.8 cm fluid density cyst in the left hepatic lobe. A 4 mm hypodensity in the posterior right hepatic lobe is too small to characterize. Gallbladder/Biliary Tree: Vague hyperdense material layering in the gallbladder suspicious for sludge. Bile ducts are within normal limits. Pancreas: Normal. Spleen: Normal. Adrenal Glands: Normal. Kidneys/Ureters/Bladder: Kidneys, ureters, and bladder are normal. There are bilateral peripelvic cysts. Reproductive Organs: Uterus is surgically absent. No adnexal mass Stomach, small bowel, and colon: There are surgical changes of sleeve gastrectomy. The small bowel is normal. Surgical changes of the colon with an anastomosis in the cecum and in the rectum. Vasculature: Abdominal aorta is normal in caliber. Lymph Nodes: No lymphadenopathy. Peritoneum and retroperitoneum: No free fluid or free air. Bones: No acute osseous abnormality. Miscellaneous: There is a new large ventral hernia with a 6.7 cm opening containing normal-appearing loops of small bowel. No evidence of complication. There is soft tissue scarring in the right lower quadrant from previous ileostomy. Impression: 1. No acute abnormality in the abdomen and pelvis. 2. New large ventral hernia containing loops of small bowel. No evidence of bowel obstruction or other acute complication. 3. Probable sludge in the gallbladder. 4. Surgical changes of the stomach, small bowel, and colon. 5. Probable hepatic cysts. Electronically signed by: Laney Lai MD (03/06/2021 4:49 PM) [id number] ////////////// Study: XR CHEST 1V Indication: Shortness of breath. Comparison: None. Findings: Mild basilar volume loss. No confluent infiltrate, layering effusion or pneumothorax. The cardiomediastinal silhouette and brianna are within normal limits. Impression: Mild basilar volume loss. No lobar consolidation or pneumothorax. Electronically signed by: SARA BLACK MD (03/06/2021 5:43 PM) [facility] /////////////// Examination: Ultrasound abdomen limited HISTORY: History of right upper quadrant pain COMPARISON: None available FINDINGS: The liver length measures 16.8 cm. Cystic structure identified in the left lobe of the liver measuring 1.9 cm likely cyst. The gallbladder wall thickness measures 1.4 mm. The common bile duct measures 4 mm in transverse dimension. The gallbladder is mildly distended. No evidence of gallstones identified. The right kidney measures 11.2 x 4.0 x 4.8 cm. Minimal prominent right renal pelvis could be prominent extrarenal pelvis or mild hydronephrosis. The pancreas, aorta, IVC are not well-visualized due to bowel gas. IMPRESSION: 1. No evidence of gallstones. 2. Mild prominent right renal pelvis could be hydronephrosis or extrarenal pelvis. Electronically signed by: Terry Velez MD (03/06/2021 6:03 PM) [id number] Heart Score C/O Chest Pain: No HEART Score for Chest Pain: HEART Score for Chest Pain Response (Comments) Value History Slighlty/Non-Suspicious 0 ECG Normal 0 Age >45 - < 65 1 Risk Factors 1 or 2 Risk Factors 1 Troponin < Normal Limit 0 Total 2 Risk Factors: Risk Factors: DM, Current or recent (<one month) smoker, HTN, HLP, family history of CAD, obesity. Risk Scores: Risk Factors: DM, Current or recent (<one month) smoker, HTN, HLP, family history of CAD, obesity. Course & Med Decision Making Course & Med Decision Making Hemodynamically stable with HPI concerning for prior complicated intra-abdominal issues, physical exam nonconcerning for an acute abdomen Comprehensive ER work-up obtained concerning for ventral hernia otherwise no emergent or surgical issues readily present. With that said, patient's pain and overall clinical picture did not improve with ER intervention that included 1 mg IV Dilaudid and a total of 150mcg Fentanyl I contacted Dr. Stout, surgeon at [facility] and reviewed ER imaging and abdominal exam. He agreed need for hospital transfer for admission for serial abdominal exams, pain control and examination in the morning unless something changes in the interim I contacted hospitalist, Dr. Fischer at [facility] and discussed need for transfer, he agreed and accepted patient under his care I updated patient and at bedside on proposed plan of care that included hospital transfer for continued IV fluid, IV pain control, n.p.o. status and serial abdominal exams with surgery consultation. They were amenable. All questions and concerns addressed prior to ER transfer Critical Care Time This patient required critical care. Due to the fact that the patient required a significant amount of one on one physician - patient contact time, ordering and review of studies, arranging urgent treatment with development of a management plan, evaluation of patients response to treatment with frequent reassessments, and discussions with other providers this patient required 50 minutes of critical care time. Critical care time was indicated due to the inherent instab ility and/or potential for instability in this patient. The critical care time that is allocated to this patient is above and beyond any time spent on any other billable procedures performed on this patient. Dragon Disclaimer Dragon Disclaimer This electronic medical record was generated, in whole or in part, using a voice recognition dictation system. Departure Departure: Impression: Primary Impression: Abdominal pain Additional Impressions: Ventral hernia without obstruction or gangrene History of diverticulitis History of ileostomy Disposition: 02 [facility] ([facility]) Admitting Physician: Brian Fischer Condition: STABLE Referrals: NATANAEL GUZMAN (PCP) Problem Qualifiers JUAN AMADO DO Mar 06, 2021 17:02
--- NOTE | 2021-03-06 17:45 | RAD ---
Study: XR CHEST 1V Indication: Shortness of breath. Comparison: None. Findings: Mild basilar volume loss. No confluent infiltrate, layering effusion or pneumothorax. The cardiomedia stinal silhouette and brianna are within normal limits. Impression: Mild basilar volume loss. No lobar consolidation or pneumothorax. Electronically signed by: SARA BLACK MD (03/06/2021 5:43 PM) [facility]
--- NOTE | 2021-03-06 18:06 | RAD ---
Examination: Ultrasound abdomen limited HISTORY: History of right upper quadrant pain COMPARISON: None available FINDINGS: The liver length measures 16.8 cm. Cystic structure identified in the left lobe of the liver measurin g 1.9 cm likely cyst. The gallbladder wall thickness measures 1.4 mm. The common bile duct measures 4 mm in transverse dimension. The gallbladder is mildly distended. No evidence of gallstones identifie d. The right kidney measures 11.2 x 4.0 x 4.8 cm. Minimal prominent right renal pelvis could be promi nent extrarenal pelvis or mild hydronephrosis. The pancreas, aorta, IVC are not well-visualized due t o bowel gas. IMPRESSION: 1. No evidence of gallstones. 2. Mild prominent right renal pelvis could be hydronephrosis or extrarenal pelvis. Electronically signed by: Terry Velez MD (03/06/2021 6:03 PM) [id number]
[2021-03-06] MEDS ORDERED: IV NORMAL SALINE 1,000ML 1,000 ML IV ONE (18:30)
[2021-03-06 18:50] VITALS: BP 138/75
[2021-03-07] MEDS ORDERED: HYDROmorphone PF 2 MG/ML VIAL IVP PRN (10:00)
== END 2021-03-06 20:25 | disposition short-term general hospital (02) ==
LOC: ER 15:05
DX: R10.9 Unspecified abdominal pain (principal); K43.9 Ventral hernia without obstruction or gangrene; Z93.2 Ileostomy status; Z90.49 Acquired absence of other specified parts of digestive tract; Z88.1 Allergy status to other antibiotic agents
CPT/HCPCS: 36415; 71045; 74177; 76705; 80053; 81001; 83690; 84484; 85025; 93005; 96361; 96374; 96375; 96376; 99285; J1170; J3010; J7030; Q9967

== ENCOUNTER 2021-03-26 15:27 | Emergency (ER) | payer OTHER ==
[~2021-03-26] VITALS: Ht 165.1 cm; Wt 78.8 kg
[2021-03-26] MEDS ORDERED: HYDROmorphone PF 1 MG/ML DISP.SYRIN IVP ONE (16:15)
[2021-03-26] MEDS ORDERED: ONDANSETRON PF 4 MG/2 ML VIAL. IVP ONE (16:15)
[2021-03-26] MEDS ORDERED: IOHEXOL 300 MG/ML 75 ML VIAL. IV ONE (16:15)
[2021-03-26] MEDS ORDERED: IV NORMAL SALINE 1,000ML 1,000 ML IV SCH (16:15)
[2021-03-26 16:32] LABS: CREATININE 0.9 mg/dL (0.6-1.0)
[2021-03-26 16:34] LABS: BASO # 0.1 x10^3/uL (0.0-0.2); BASO % 1 % (0-3); EOS # 0.1 x10^3/uL (0.0-0.7); EOS % 1 % (0-3); HEMATOCRIT 39.3 % (36.0-47.0); HEMOGLOBIN 13.2 g/dL (12.0-15.5); LYMPH # 2.2 x10^3/uL (1.0-4.8); LYMPH % 26 % (24-48); MEAN CORPUSCULAR HEMOGLOBIN 29 pg (25-35); MEAN CORPUSCULAR HGB CONC 33 g/dL (31-37); MEAN CORPUSCULAR VOLUME 87 fL (79-100); MONO # 0.6 x10^3/uL (0.0-1.1); MONO % 7 % (0-9); NEUT # 5.6 x10^3uL (1.8-7.7); NEUT % 65 % (31-73); PLATELET COUNT 291 x10^3/uL (140-400); RED BLOOD COUNT 4.53 x10^6/uL (3.50-5.40); RED CELL DISTRIBUTION WIDTH 13.7 % (11.5-14.5); WHITE BLOOD COUNT 8.5 x10^3/uL (4.0-11.0)
[2021-03-26 16:39] LABS: ALBUMIN 3.7 g/dL (3.4-5.0); DIRECT BILIRUBIN 0.1 mg/dL (0.0-0.2); TOTAL BILIRUBIN 0.4 mg/dL (0.2-1.0); TOTAL PROTEIN 7.4 g/dL (6.4-8.2)
--- NOTE | 2021-03-26 17:27 | RAD ---
INDICATION: Reason: ruq pain, 18 days postop acute angela / Spl. Instructions: / History: . COMPARISON: March 06, 2021 TECHNIQUE: Axial CT images obtained through the abdomen and pelvis with contrast. One or more of the following individualized dose reduction techniques were utilized for this examinat ion: 1. Automated exposure control; 2. Adjustment of the mA and/or kV according to patient size; 3 . Use of iterative reconstruction technique. FINDINGS: Abdominal aorta is not aneurysmal. There is some scattered plaque. Prominence of the bile ducts postcholecystectomy which is a common finding postoperatively. Probable cyst at the left lobe the liver. Small amount of edema in the fat near gallbladder fossa without drainable fluid collection in the are a. There is also subcutaneous edema to the fat which could be related to the patient's surgery. No peripancreatic fluid collection. Spleen unremarkable. Repeat demonstration of prominence of the bilateral renal pelvis which is similar to prior. Urinary bladder is partially distended. Colonic diverticulosis. Postoperative changes to the right-sided colon with suture line seen. No dilated loops of bowel to suggest obstruction. Degenerative changes of the spine. Multilevel central canal and neural foraminal stenosis. IMPRESSION: * Prominence of the bile ducts which is commonly seen postcholecystectomy. No drainable fluid collec tion at the cholecystectomy site. * Repeat demonstration of prominence of bilateral renal pelvis. * No evidence of bowel obstruction. Electronically signed by: Kavon Fernandez MD (03/26/2021 5:25 PM) [id number]
--- NOTE | 2021-03-26 17:41 | PHYS DOC ---
Past History Past Medical History: Cancer, Depression, Diverticulitis, Other Additional Past Medical Histor: colonic abscess with adhesions Past Surgical History: Appendectomy, Cancer Surgery, Cholecystectomy, Other Additional Past Surgical Histo: ileostomy, ileostomy reversal, HERNIA REPAIR Smoking: Non-smoker Alcohol Use: Rarely Drug Use: None General Adult EDM: Chief Complaint: ABDOMINAL PAIN HPI: HPI: 50-year-old female past medical history of depression and diverticulitis, complicated with perforation, colostomy with reversal, presents to the ED with complaints of periumbilical abdominal pain and right upper quadrant abdominal pain stating " I am 18 days postop." Reports acute cholecystectomy and hernia repair with mesh by Dr. Stout, "he sent me here, I have a very high pain tolerance." States she doesn't take her oxycodone prescribed because "I don't like how it makes me feel." Patient requested a look at her umbilical incision stating "my suture is sticking out and bothering me." Reports multiple loose stools daily. Review of Systems: Review of Systems: Constitutional: Denies fever or chills Eyes: Denies change in visual acuity HENT: Denies nasal congestion or sore throat Respiratory: Denies cough or shortness of breath Cardiovascular: Denies chest pain or edema GI: Denies constipation or bloody stools : Denies dysuria or vaginal bleeding Musculoskeletal: Denies back pain or joint pain Integument: Denies rash or diaphoresis Neurologic: Denies headache, focal weakness or sensory changes Endocrine: Denies polyuria or polydipsia Lymphatic: Denies swollen glands Psychiatric: Denies depression or anxiety Current Medications: Current Meds: Current Medications Medications (Trade) Dose Ordered Sig/Papito Start Time Stop Time Status Last Admin Dose Admin Hydromorphone HCl (Dilaudid) 1 mg 1X ONCE 03/26/21 16:15 03/26/21 16:16 DC 03/26/21 16:15 1 MG Iohexol (Omnipaque 300 Mg/ml) 75 ml 1X ONCE 03/26/21 16:15 03/26/21 16:16 DC 03/26/21 16:33 75 ML Ondansetron HCl (Zofran) 8 mg 1X ONCE 03/26/21 16:15 03/26/21 16:16 DC 03/26/21 16:14 8 MG Sodium Chloride 1,000 ml @ 1,000 mls/hr Q1H 03/26/21 16:15 03/26/21 17:14 DC 03/26/21 16:12 1,000 MLS/HR Allergies: Allergies: Allergies Coded Allergies Type Severity Reaction Last Updated Verified cephalexin Allergy Unknown 03/08/19 Yes Physical Exam: PE: Constitutional: Well developed, well nourished, HENT: Normocephalic, atraumatic, moist mucous membranes Eyes: EOMI, conjunctiva normal, no discharge. Neck: Normal range of motion, supple, Cardiovascular: S1/2 present, regular rhythm Lungs & Thorax: Speaking in full sentences, bilateral equal chest rise, no tachypnea or increased work of breathing Abdomen: soft, mild tenderness just above the umbilicus over incision site, no wound dehiscence, vertical periumbilical incision site approximately 3 cm is clean/dry/intact, no rash or purulent drainage, proximal aspect laceration was small hard yellow lesion (dried skin vs suture?) Skin: Warm, dry, no erythema, no rash. [] Back: No tenderness, no CVA tenderness. [] Extremities: No tenderness, no cyanosis, Neurologic: Alert and oriented X 3, normal motor function, normal sensory function, no focal deficits noted. [] Psychologic: Affect normal, judgement normal, mood normal. [] Current Patient Data: Labs: Laboratory Tests Test 03/26/21 16:06 White Blood Count 8.5 x10^3/uL (4.0-11.0) Red Blood Count 4.53 x10^6/uL (3.50-5.40) Hemoglobin 13.2 g/dL (12.0-15.5) Hematocrit 39.3 % (36.0-47.0) Mean Corpuscular Volume 87 fL (79-100) Mean Corpuscular Hemoglobin 29 pg (25-35) Mean Corpuscular Hemoglobin Concent 33 g/dL (31-37) Red Cell Distribution Width 13.7 % (11.5-14.5) Platelet Count 291 x10^3/uL (140-400) Neutrophils (%) (Auto) 65 % (31-73) Lymphocytes (%) (Auto) 26 % (24-48) Monocytes (%) (Auto) 7 % (0-9) Eosinophils (%) (Auto) 1 % (0-3) Basophils (%) (Auto) 1 % (0-3) Neutrophils # (Auto) 5.6 x10^3uL (1.8-7.7) Lymphocytes # (Auto) 2.2 x10^3/uL (1.0-4.8) Monocytes # (Auto) 0.6 x10^3/uL (0.0-1.1) Eosinophils # (Auto) 0.1 x10^3/uL (0.0-0.7) Basophils # (Auto) 0.1 x10^3/uL (0.0-0.2) Sodium Level 141 mmol/L (136-145) Potassium Level 4.0 mmol/L (3.5-5.1) Chloride Level 106 mmol/L (98-107) Carbon Dioxide Level 28 mmol/L (21-32) Anion Gap 7 (6-14) Blood Urea Nitrogen 20 mg/dL (7-20) Creatinine 0.9 mg/dL (0.6-1.0) Estimated GFR (Cockcroft-Gault) 66.0 Glucose Level 103 mg/dL (70-99) H Calcium Level 9.0 mg/dL (8.5-10.1) Total Bilirubin 0.4 mg/dL (0.2-1.0) Direct Bilirubin 0.1 mg/dL (0.0-0.2) Aspartate Amino Transferase (AST) 12 U/L (15-37) L Alanine Aminotransferase (ALT) 14 U/L (14-59) Alkaline Phosphatase 90 U/L (46-116) Creatine Kinase 39 U/L (26-192) Total Protein 7.4 g/dL (6.4-8.2) Albumin 3.7 g/dL (3.4-5.0) Lipase 135 U/L (73-393) Vital Signs: Vital Signs Date Time Temp Pulse Resp B/P (MAP) Pulse Ox O2 Delivery O2 Flow Rate FiO2 03/26/21 16:15 18 03/26/21 15:30 98.8 99 135/86 (102) 99 Room Air EKG: EKG: [] Radiology/Procedures: Radiology/Procedures: IMAGING REPORT Signed PATIENT: EPIFANIO VÁSQUEZ ACCOUNT: [id number] : 1970 LOCATION: ER AGE: 50 SEX: F EXAM STATUS: REG ER ORD. PHYSICIAN: SHAYNA SAMSON DO REASON: ruq pain, 18 days postop acute angela PROCEDURE: CT ABD PELV W/ IV CONTRST ONLY INDICATION: Reason: ruq pain, 18 days postop acute angela / Spl. Instructions: / History: . COMPARISON: March 06, 2021 TECHNIQUE: Axial CT images obtained through the abdomen and pelvis with contrast. One or more of the following individualized dose reduction techniques were utilized for this examination: 1. Automated exposure control; 2. Adjustment of the mA and/or kV according to patient size; 3. Use of iterative reconstruction technique. FINDINGS: Abdominal aorta is not aneurysmal. There is some scattered plaque. Prominence of the bile ducts postcholecystectomy which is a common finding postoperatively. Probable cyst at the left lobe the liver. Small amount of edema in the fat near gallbladder fossa without drainable fluid collection in the area. There is also subcutaneous edema to the fat which could be related to the patient's surgery. No peripancreatic fluid collection. Spleen unremarkable. Repeat demonstration of prominence of the bilateral renal pelvis which is similar to prior. Urinary bladder is partially distended. Colonic diverticulosis. Postoperative changes to the right-sided colon with suture line seen. No dilated loops of bowel to suggest obstruction. Degenerative changes of the spine. Multilevel central canal and neural foraminal stenosis. IMPRESSION: * Prominence of the bile ducts which is commonly seen postcholecystectomy. No drainable fluid collection at the cholecystectomy site. * Repeat demonstration of prominence of bilateral renal pelvis. * No evidence of bowel obstruction. Electronically signed by: Radu Sol MD (03/26/2021 5:25 PM) [id number] DICTATED AND SIGNED BY: RADU SOL MD DATE: 03/26/211710 CC: NATANAEL GUZMAN; SHAYNA SAMSON DO ~MTH0 0 Heart Score: C/O Chest Pain: No Risk Factors: Risk Factors: DM, Current or recent (<one month) smoker, HTN, HLP, family history of CAD, obesity. Risk Scores: Score 0 - 3: 2.5% MACE over next 6 weeks - Discharge Home Score 4 - 6: 20.3% MACE over next 6 weeks - Admit for Clinical Observation Score 7 - 10: 72.7% MACE over next 6 weeks - Early Invasive Strategies Course & Med Decision Making: Course & Med Decision Making Pertinent Labs and Imaging studies reviewed. (See chart for details) Concern for abdominal pain and wound check. D/w Dr. Stout. surgery. He advised me to reassure patient that these are normal postoperative complications from cholecystectomy. Recommend low-fat diet, Tylenol or ibuprofen as needed for pain, Creon and cholestyramine, with follow-up in 2 weeks. Will discharge home with strict ED return precautions were given for severe pain, melena hematochezia, dehydration, syncope neurologic deficits. Encouraged urgent outpatient follow-up with PMD and surgery. Life-threatening processes were considered but are low suspicion at this time, given history, physical exam and ED workup. Pt was educated on all prescription medications and adverse effects. All patient's questions were answered and pt was stable at time of discharge. Life/limb-threatening differential includes but is not limited to, aortic dissection, aortic aneurysm, acute coronary syndrome, surgical abdomen (appendicitis, cholecystitis, ischemic bowel, strangulated hernia, etc), bowel obstruction or volvulus, bladder outlet obstruction, gastrointestinal bleeding, inflammatory bowel disease, peptic ulcer disease, ACS/CAD, sepsis, diverticular disease, ureterolithiasis, nephrolithiasis, ovarian or testicular torsion, ectopic , vaginal hemorrhage, or genitourinary infection. I spoken with the patient and her caregivers. I explained the patient's condition, diagnoses and treatment plan based on the information available to me at this time. I have answered the patient and her caregiver's questions and a ddressed any concerns. The patient and her caregivers have a good understanding of patient's diagnosis, condition and treatment plan as can be expected at this point. Vital signs have been stable. Patient's condition is stable and appropriate for discharge from the emergency department. Patient will pursue further outpatient evaluation with primary care physician or other designated or consulting physician as outlined in the discharge instructions. The patient and/or caregivers are agreeable to this plan of care and follow-up instructions have been explained in detail. The patient and/or caregivers have received these instructions in written form and have expressed an understanding of the discharge instructions. The patient and/or caregivers are aware that any significant change of condition or worsening of symptoms should prompt immediate return to this or the closest emergency department or call to [facility] Disclaimer: Nancy Disclaimer: This electronic medical record was generated, in whole or in part, using a voice recognition dictation system. Departure Departure: Impression: Primary Impression: Abdominal pain Additional Impression: Loose stools Disposition: HOME / SELF CARE / HOMELESS Condition: STABLE Referrals: NATANAEL GUZMAN (PCP) this week for routine care Patient Instructions: Laparoscopic Cholecystectomy, Care After, Pain Relief Preoperatively and Postoperatively Additional Instructions: FOLLOW UP WITH SURGERY: FOR DEFINITIVE MANAGEMENT -Dr. Stout within 2 weeks [facility] General Surgery Address: [address] [place] [address] EMERGENCY DEPARTMENT GENERAL DISCHARGE INSTRUCTIONS Thank you for coming to [facility] (ED) today and trusting us with you care. We trust that you had a positivie experience in our Emergency Department. If you wish to speak to the department management, you may call the director at [phone]. YOUR FOLLOW UP INSTRUCTIONS ARE FOLLOWS: 1. Do you have a private Doctor? If you do not have a private doctor, please ask for a resource list of physicians or clinics that may be able to assist you with follow up care. 2. The Emergency Physician has interpreted your x-rays. The X-Ray specialist will also review them. If there is a change in the findings, you will be notified in 48 hours when at all possible. 3. A lab test or culture has been done, your results will be reviewed and you will be notified if you need a change in treatment. ADDITIONAL INSTRUCTIONS AND INFORMATION: 1. Your care today has been supervised by a physician who is specially trained in emergency care. Many problems require more than one evaluation for a complete diagnosis and treatment. We recommend that you schedule your follow up appointment as recommended to ensure complete treatment of you illness or injury. If you are unable to obtain follow up care and continue to have a problem, or if your condition worsens, we recommend that you return to the ED. 2. We are not able to safely determine your condition over the phone nor are we able to give sound medical advice over the phone. For these safety reasons, if you call for medical advice we will ask you to come to the ED for further evaluation. 3. If you have any questions regarding these discharge instructions please call the ED at [phone]. SAFETY INFORMATION: In the interest of safety, wellness, and injury prevention; we encourage you to wear your sealbelt, if you smoke; quite smoking, and we encourage family to use a protective helmet for bicycling and other sporting events that present an increased risk for head injury. IF YOUR SYMPTOMS WORSEN OR NEW SYMPTOMS DEVELOP, OR YOU HAVE CONCERNS ABOUT YOUR CONDITION; OR IF YOUR CONDITION WORSENS WHILE YOU ARE WAITING FOR YOUR FOLLOW UP APPOINT MENT; EITHER CONTACT YOUR PRIMARY CARE DOCTOR, THE PHYSICIAN WHOSE NAME AND NUMBER YOU WERE GIVEN, OR RETURN TO THE ED IMMEDIATELY. Scripts Lipase/Protease/Amylase (CREDANIELA DR 12,000 UNITS CAPSULE) 1 Each Capsule.dr 1 EACH PO TID for loose stools postop MDD 28768 units for 30 Days, #90 CAP take with meals Prov: SHAYNA SAMSON DO 03/26/21 Cholestyramine (CHOLESTYRAMINE RESIN) 5 Gm Powder 4 GM PO QHS for loose stools for 30 Days, #120 GM 0 Refills Prov: SHAYNA SAMSON DO 03/26/21 Ibuprofen (IBUPROFEN) 600 Mg Tablet 600 MG PO Q6HRS for headache, #20 TAB Prov: SHAYNA SAMSON DO 03/26/21 SHAYNA SAMSON DO Mar 26, 2021 17:41
[2021-03-26] MEDS ORDERED: KETOROLAC 15 MG/ML VIAL. IVP ONE ×2 (17:45→18:30)
[2021-03-26] MEDS ORDERED: IBUP600T16 PO (18:10)
[2021-03-26] MEDS ORDERED: LIPA1CAP4 PO (18:10)
[2021-03-26] MEDS ORDERED: CHOL5POW PO (18:10)
[2021-03-26 18:35] VITALS: BP 147/81
== END 2021-03-26 18:35 | disposition home or self-care (01) ==
LOC: ER 15:27
DX: R10.11 Right upper quadrant pain (principal); R10.33 Periumbilical pain; G89.18 Other acute postprocedural pain; R19.7 Diarrhea, unspecified; F32.9 Major depressive disorder, single episode, unspecified; Z90.89 Acquired absence of other organs; Z88.1 Allergy status to other antibiotic agents
CPT/HCPCS: 36415; 74177; 80048; 80076; 82550; 83690; 85025; 96361; 96374; 96375; 99285; J1170; J1885; J2405; J7030; Q9967

== ENCOUNTER → 2021-05-14 | Outpatient (CLI) | payer OTHER ==
[~2021-05-14] MED LIST changes: +CHOL5POW PO; +IBUP600T16 PO; +LIPA1CAP4 PO
--- NOTE | 2021-05-14 12:22 | RAD ---
EXAM: NUCLEAR GASTRIC EMPTYING SCAN. HISTORY: Epigastric pain and bloating. Comparison gastrectomy. COMPARISON: None. TECHNIQUE: Serial static images were obtained over the stomach following oral administration of 1.9 m Ci of 99m-Tc sulfur colloid in a solid meal. FINDINGS: The stomach appears normal in contour. There is clearance of activity into the small bowel. The remaining fraction of gastric activity is as follows. 1 hour 61% (normal range 34.8-91%) 2 hour 19% (normal range 2.7-60%) 3 hour 0% (normal range 0.5-28%) IMPRESSION: 1. Normal gastric emptying. Electronically signed by: Darrell Churchill MD (05/14/2021 12:19 PM) [id number]
== END ==
LOC: NM 08:46
PROVIDERS: ATTEND Internal Medicine Gastroenterology
DX: R10.13 Epigastric pain (principal); R14.0 Abdominal distension (gaseous)
CPT/HCPCS: 78264; A9541

== ENCOUNTER → 2021-05-30 | Outpatient (CLI) | payer OTHER ==
--- NOTE | 2021-05-31 14:13 | RAD ---
SMALL BOWEL SERIES 05/31/2021. Reason for study: Abdominal pain, diarrhea. Comparison studies: None.. Technique: Preliminary director supplier quality film of the abdomen was obtained. Then following ingestion of oral bariu m, serial images of the abdomen were obtained to assess progress of contrast throughout the small bow el. Findings: Cholecystectomy changes are present. Transit time through the small bowel is normal. No jessica dence for bowel obstruction or dilatation. Jejunal and ileal fold patterns are normal with no evidenc e for inflammatory bowel disease. The terminal ileum appears normal. IMPRESSION: No suspicious mucosal abnormality. No bowel obstruction. Electronically signed by: Ariana Villela MD (05/31/2021 2:11 PM) [id number]
== END ==
LOC: RAD 08:03
PROVIDERS: ATTEND Internal Medicine Gastroenterology
DX: R19.7 Diarrhea, unspecified (principal); Z90.49 Acquired absence of other specified parts of digestive tract
CPT/HCPCS: 74250

== ENCOUNTER 2021-07-14 19:24 | Emergency (ER) | payer OTHER ==
[~2021-07-14] VITALS: Ht 165.1 cm; Wt 80.7 kg
[2021-07-14] MEDS ORDERED: HYDROcodone/APAP 5/325MG 1 TAB TABLET ONE (19:46)
[2021-07-14] MEDS ORDERED: MORPHINE SULFATE 4 MG/ML DISP.SYRIN. ONE (19:49)
[2021-07-14] MEDS ORDERED: MORPHINE SULFATE 4 MG/ML DISP.SYRIN. IM ONE ×2 (20:00→21:30)
[2021-07-14] MEDS ORDERED: HYDROcodone/APAP 5/325MG 1 TAB TABLET PO ONE ×2 (20:00→22:00)
--- NOTE | 2021-07-14 20:12 | PHYS DOC ---
Past History Past Medical History: Cancer, Depression, Diverticulitis, Other Additional Past Medical Histor: colonic abscess with adhesions (REZA LYN APRN) Past Surgical History: Cholecystectomy, Other Additional Past Surgical Histo: ileostomy, ileostomy reversal, HERNIA REPAIR (REZA LYN APRN) Smoking: Non-smoker Alcohol Use: Occasionally Drug Use: None (REZA LYN APRN) General Adult EDM: Chief Complaint: ANKLE PROBLEM HPI: HPI: Patient is a 51-year-old female who presents with left ankle pain. Patient states that yesterday she tripped and fell down the stairs. Unable to bear weight. Patient states she has been applying ice and taking ibuprofen at home with no relief. (REZA LYN APRN) Review of Systems: Review of Systems: ROS At least 10 ROS systems have been reviewed and are negative except as documented in the HPI. General: Negative except as outlined in HPI above. Skin: Negative except as outlined in HPI above. HEENT: Negative except as outlined in HPI above. Neck: Negative except as outlined in HPI above. Respiratory: Negative except as outlined in HPI above.. Cardiovascular: Negative except as outlined in HPI above. Abdomen: Negative except as outlined in HPI above. : Negative except as outlined in HPI above. Back/MSK: Negative except as outlined in HPI above. Neuro: Negative except as outlined in HPI above. Psych: Negative except as outlined in HPI above. (REZA LYN APRN) Current Medications: Current Meds: Current Medications Medications (Trade) Dose Ordered Sig/Papito Start Time Stop Time Status Last Admin Dose Admin Acetaminophen/ Hydrocodone Bitart (Lortab 5/325) 1 tab STK-MED ONCE 07/14/21 19:46 07/14/21 19:47 DC Morphine Sulfate (Morphine 4mg Syringe) 4 mg STK-MED ONCE 07/14/21 19:49 07/14/21 19:50 DC (REZA LYN APRN) Allergies: Allergies: Allergies Coded Allergies Type Severity Reaction Last Updated Verified cephalexin Allergy Intermediate unknown 07/14/21 Yes (REZA LYN APRN) Physical Exam: PE: Constitutional: Well developed, well nourished, no acute distress, non-toxic appearance. [] HENT: Normocephalic, atraumatic, bilateral external ears normal, oropharynx moist, no oral exudates, nose normal. [] Eyes: PERRLA, EOMI, conjunctiva normal, no discharge. [] Neck: Normal range of motion, no tenderness, supple, no stridor. [] Cardiovascular:Heart rate regular rhythm, no murmur [] Lungs & Thorax: Bilateral breath sounds clear to auscultation [] Abdomen: Bowel sounds normal, soft, no tenderness, no masses, no pulsatile masses. [] Skin: Warm, dry, no erythema, no rash. [] Back: No tenderness, no CVA tenderness. [] Extremities: Left ankle tenderness, no cyanosis, no clubbing, ROM intact, swelling Neurologic: Alert and oriented X 3, normal motor function, normal sensory function, no focal deficits noted. [] Psychologic: Affect normal, judgement normal, mood normal. [] (REZA LYN APRN) Current Patient Data: Vital Signs: Vital Signs Date Time Temp Pulse Resp B/P (MAP) Pulse Ox O2 Delivery O2 Flow Rate FiO2 07/14/21 20:00 18 07/14/21 19:30 98.0 75 122/72 (89) 97 Room Air (REZA LYN APRN) EKG: EKG: [] (REZA LYN APRN) Radiology/Procedures: Radiology/Procedures: []Study: 1. XR LT TIBIA + FIBULA 2. XR EXAM OF ANKLE_LEFT 3V Indication: Ankle injury. Pain. Comparison: None. Findings: Left tibia/fibula: The proximal tibia and fibula are intact. No malalignment at the partially assessed knee or femorotibial compartment joint space collapse. Left ankle: Acute, horizontally oriented fracture of the distal fibula occurring below the ankle joint space. No displacement. Acute avulsion fracture also seen at the lateral hindfoot. The ankle mortise is symmetric considering the absence of weightbearing. Impression: Left tibia/fibula and left ankle: 1. Acute nondisplaced fracture of the lateral malleolus occurring below the joint line (Snider type A). 2. Small acute avulsion fracture at the lateral hindfoot only seen on one view but favored to originate from the distal margin of the calcaneus. 3. No acute fracture of the more proximal tibia/fibula or at the partially assessed knee. Electronically signed by: SARA BLACK MD (07/14/2021 9:02 PM) [facility] (REZA LYN APRN) Heart Score: C/O Chest Pain: No Risk Factors: Risk Factors: DM, Current or recent (<one month) smoker, HTN, HLP, family history of CAD, obesity. Risk Scores: Score 0 - 3: 2.5% MACE over next 6 weeks - Discharge Home Score 4 - 6: 20.3% MACE over next 6 weeks - Admit for Clinical Observation Score 7 - 10: 72.7% MACE over next 6 weeks - Early Invasive Strategies (REZA LYN APRN) Course & Med Decision Making: Course & Med Decision Making Pertinent Labs and Imaging studies reviewed. (See chart for details) [] 51-year-old female presents with left ankle pain after tripping and falling down the stairs yesterday. Unable to bear weight. Pedal pulses are intact. 4 mg IM morphine given for pain. Left ankle x-ray ordered to rule out fracture. Ankle x-ray shows acute nondisplaced fracture of the lateral malleolus occurring below the joint line (Snider type A). Short leg posterior splint placed and crutches given. Referral information for orthopedics . Rice instructions. Patient sent home with hydrocodone. Patient should follow-up with Ortho in 5 to 7 days. Return precautions discussed. (REZA LYN APRN) Course & Med Decision Making Did not see or evaluate patient. Did not discuss patient with [facility]TER. Agree with [facility] [facility]TER's work-up and disposition per note. (MADISON PERRY MD) Dragon Disclaimer: Dragon Disclaimer: This electronic medical record was generated, in whole or in part, using a voice recognition dictation system. (REZA LYN APRN) Departure Departure: Impression: Primary Impression: Fracture, ankle Qualified Codes: S82.891A - Other fracture of right lower leg, initial encounter for closed fracture Disposition: HOME / SELF CARE / HOMELESS Condition: STABLE Referrals: NATANAEL GUZMAN (PCP) Patient Instructions: RICE - Routine Care for Injuries, [id number] Additional Instructions: You need to call Ortho in 5 to 7 days for a follow-up appointment. Rest, use ice, elevate to help with swelling and pain. Sending home with prescription for hydrocodone, use Motrin also for breakthrough pain. Return if you have worsening symptoms or concerns. [facility] [address] [place] [phone] EMERGENCY DEPARTMENT GENERAL DISCHARGE INSTRUCTIONS Thank you for coming to [facility] (ED) today and trusting us with you care. We trust that you had a positivie experience in our Emergency Department. If you wish to speak to the department management, you may call the director at [phone]. YOUR FOLLOW UP INSTRUCTIONS ARE FOLLOWS: 1. Do you have a private Doctor? If you do not have a private doctor, please ask for a resource list of physicians or clinics that may be able to assist you with follow up care. 2. The Emergency Physician has interpreted your x-rays. The X-Ray specialist will also review them. If there is a change in the findings, you will be notified in 48 hours when at all possible. 3. A lab test or culture has been done, your results will be reviewed and you will be notified if you need a change in treatment. ADDITIONAL INSTRUCTIONS AND INFORMATION: 1. Your care today has been supervised by a physician who is specially trained in emergency care. Many problems require more than one evaluation for a complete diagnosis and treatment. We recommend that you schedule your follow up appointment as recommended to ensure complete treatment of you illness or injury. If you are unable to obtain follow up care and continue to have a problem, or if your condition worsens, we recommend that you return to the ED. 2. We are not able to safely determine your condition over the phone nor are we able to give sound medical advice over the phone. For these safety reasons, if you call for medical advice we will ask you to come to the ED for further evaluation. 3. If you have any questions regarding these discharge instructions please call the ED at [phone]. SAFETY INFORMATION: In the interest of safety, wellness, and injury prevention; we encourage you to wear your sealbelt, if you smoke; quite smoking, and we encourage family to use a protective helmet for bicycling and other sporting events that present an increased risk for head injury. IF YOUR SYMPTOMS WORSEN OR NEW SYMPTOMS DEVELOP, OR YOU HAVE CONCERNS ABOUT YOUR CONDITION; OR IF YOUR CONDITION WORSENS WHILE YOU ARE WAITING FOR YOUR FOLLOW UP APPOINTMENT; EITHER CONTACT YOUR PRIMARY CARE DOCTOR, THE PHYSICIAN WHOSE NAME AND NUMBER YOU WERE GIVEN, OR RETURN TO THE ED IMMEDIATELY. Scripts Hydrocodone/Acetaminophen (Hydrocodone-Acetamin 5-325 mg) 1 Each Tablet 1-2 TAB PO Q4-6HRS PRN for PAIN for 7 Days, #30 TAB Prov: REZA LYN APRN 07/14/21 REZA LYN APRN Jul 14, 2021 20:12 MADISON PERRY MD Jul 14, 2021 22:30
--- NOTE | 2021-07-14 21:04 | RAD ---
Study: 1. XR LT TIBIA + FIBULA 2. XR EXAM OF ANKLE_LEFT 3V Indication: Ankle injury. Pain. Comparison: None. Findings: Left tibia/fibula: The proximal tibia and fibula are intact. No malalignment at the partially assessed knee or femorotib ial compartment joint space collapse. Left ankle: Acute, horizontally oriented fracture of the distal fibula occurring below the ankle joint space. No displacement. Acute avulsion fracture also seen at the lateral hindfoot. The ankle mortise is symmetr ic considering the absence of weightbearing. Impression: Left tibia/fibula and left ankle: 1. Acute nondisplaced fracture of the lateral malleolus occurring below the joint line (Snider type A) . 2. Small acute avulsion fracture at the lateral hindfoot only seen on one view but favored to origina te from the distal margin of the calcaneus. 3. No acute fracture of the more proximal tibia/fibula or at the partially assessed knee. Electronically signed by: SARA BLACK MD (07/14/2021 9:02 PM) [facility]
[2021-07-14 21:20] VITALS: BP 124/75
[2021-07-14] MEDS ORDERED: HYDR-2759 PO (21:28)
[2021-07-14] MEDS ORDERED: ONDANSETRON PF 4 MG/2 ML VIAL. IM ONE (21:30)
== END 2021-07-14 21:50 | disposition home or self-care (01) ==
LOC: ER 19:24
DX: S82.65XA Nondisplaced fracture of lateral malleolus of left fibula, initial encounter for closed fracture (principal); Z88.1 Allergy status to other antibiotic agents; W01.0XXA Fall on same level from slipping, tripping and stumbling without subsequent striking against object, initial encounter; Y93.89 Activity, other specified; Y92.89 Other specified places as the place of occurrence of the external cause; Y99.8 Other external cause status
CPT/HCPCS: 73590; 73610; 96372; 99284; J2270; J2405

== ENCOUNTER 2021-08-24 14:53 | Emergency (ER) | payer OTHER ==
[~2021-08-24] VITALS: Ht 165.1 cm; Wt 82.6 kg
[~2021-08-24 14:53] MED LIST changes: -HYDR-2155 PO
[2021-08-24] MEDS ORDERED: ONDANSETRON PF 4 MG/2 ML VIAL. ONE (15:24)
[2021-08-24] MEDS ORDERED: ONDANSETRON PF 4 MG/2 ML VIAL. IVP ONE (15:30)
[2021-08-24] MEDS ORDERED: IOHEXOL 350 MG/ML 100 ML VIAL. IV ONE (15:30)
[2021-08-24] MEDS ORDERED: CONTRAST GIVEN. MC PRN (15:30)
[2021-08-24 15:56] LABS: BASO % 1 % (0-3); EOS # 0.1 x10^3/uL (0.0-0.7); EOS % 2 % (0-3); HEMATOCRIT 39.2 % (36.0-47.0); LYMPH # 2.1 x10^3/uL (1.0-4.8); LYMPH % 39 % (24-48); MEAN CORPUSCULAR HEMOGLOBIN 29 pg (25-35); MEAN CORPUSCULAR HGB CONC 33 g/dL (31-37); MEAN CORPUSCULAR VOLUME 86 fL (79-100); MONO # 0.5 x10^3/uL (0.0-1.1); MONO % 10 % (0-9); NEUT # 2.6 x10^3uL (1.8-7.7); NEUT % 48 % (31-73); PLATELET COUNT 234 x10^3/uL (140-400); RED BLOOD COUNT 4.53 x10^6/uL (3.50-5.40); RED CELL DISTRIBUTION WIDTH 14.4 % (11.5-14.5); WHITE BLOOD COUNT 5.4 x10^3/uL (4.0-11.0)
--- NOTE | 2021-08-24 15:57 | PHYS DOC ---
Past History Past Medical History: Cancer, Depression, Diverticulitis, Other Additional Past Medical Histor: colonic abscess with adhesions ; ADHD (KOBI MARION APRN) Past Surgical History: Appendectomy, Cholecystectomy, Colectomy, Hysterectomy, Oophorectomy, Other Additional Past Surgical Histo: ileostomy, ileostomy reversal, HERNIA REPAIR; thyroidectomy; bladder (KOBI MARION APRN) Smoking: Non-smoker Alcohol Use: Rarely Drug Use: None (KOBI MARION APRN) General Adult EDM: Chief Complaint: ABDOMINAL PAIN HPI: HPI: Patient is a 51-year-old female that presents today with lower abdominal pain. Patient states over the last 2 years she has had multiple abdominal surgeries which include total hysterectomy, colon resection due to abdominal abscess and colon rupture. Patient presents today with abdominal pain in the lower quadrants that started yesterday patient states her stools have been black in nature, she states she had similar symptoms about a year ago and was diagnosed with a gastrointestinal bleed. Patient denies nausea vomiting, shortness of air, or chest pain (KOBI MARION APRN) Review of Systems: Review of Systems: Constitutional: Denies fever or chills Eyes: Denies change in visual acuity HENT: Denies nasal congestion or sore throat Respiratory: Denies cough or shortness of breath Cardiovascular: Denies chest pain or edema GI: abdominal pain and black stools : Denies dysuria Musculoskeletal: Denies back pain or joint pain Integument: Denies rash Neurologic: Denies headache, focal weakness or sensory changes Endocrine: Denies polyuria or polydipsia Lymphatic: Denies swollen glands Psychiatric: Denies depression or anxiety (KOBI MARION APRN) Current Medications: Current Meds: Current Medications Medications (Trade) Dose Ordered Sig/Papito Start Time Stop Time Status Last Admin Dose Admin Fentanyl Citrate (Fentanyl 2ml Vial) 100 mcg STK-MED ONCE 08/24/21 15:24 08/24/21 15:25 DC Info (Do NOT chart on this entry -- for MONITORING) 1 each PRN DAILY PRN 08/24/21 15:30 08/26/21 15:29 Iohexol (Omnipaque 350 Mg/ml) 100 ml 1X ONCE 08/24/21 15:30 08/24/21 15:31 DC 08/24/21 15:50 100 ML Ondansetron HCl (Zofran) 4 mg STK-MED ONCE 08/24/21 15:24 08/24/21 15:24 DC (KOBI MARION APRN) Allergies: Allergies: Allergies Coded Allergies Type Severity Reaction Last Updated Verified cephalexin Allergy Intermediate 08/24/21 Yes (KOBI MARION APRN) Physical Exam: PE: Constitutional: Well developed, well nourished, no acute distress, non-toxic appearance. [] HENT: Normocephalic, atraumatic, bilateral external ears normal, oropharynx moist, no oral exudates, nose normal. [] Eyes: PERRLA, EOMI, conjunctiva normal, no discharge. [] Neck: Normal range of motion, no tenderness, supple, no stridor. [] Cardiovascular:Heart rate regular rhythm, no murmur [] Lungs & Thorax: Bilateral breath sounds clear to auscultation [] Abdomen: Bowel sounds hypoactive, tenderness with palpation to the lower abdomen, multiple abdominal incisions noted that are well-healed with no signs and symptoms of infection noted, Skin: Warm, dry, no erythema, no rash. [] Back: No tenderness, no CVA tenderness. [] Extremities: No tenderness, no cyanosis, no clubbing, ROM intact, no edema. [] Neurologic: Alert and oriented X 3, normal motor function, normal sensory function, no focal deficits noted. [] Psychologic: Affect normal, judgement normal, mood normal. [] (KOBI MARION APRN) Current Patient Data: Labs: Laboratory Tests Test 08/24/21 15:34 08/24/21 16:10 White Blood Count 5.4 x10^3/uL Red Blood Count 4.53 x10^6/uL Hemoglobin 13.0 g/dL Hematocrit 39.2 % Mean Corpuscular Volume 86 fL Mean Corpuscular Hemoglobin 29 pg Mean Corpuscular Hemoglobin Concent 33 g/dL Red Cell Distribution Width 14.4 % Platelet Count 234 x10^3/uL Neutrophils (%) (Auto) 48 % Lymphocytes (%) (Auto) 39 % Monocytes (%) (Auto) 10 % Eosinophils (%) (Auto) 2 % Basophils (%) (Auto) 1 % Neutrophils # (Auto) 2.6 x10^3uL Lymphocytes # (Auto) 2.1 x10^3/uL Monocytes # (Auto) 0.5 x10^3/uL Eosinophils # (Auto) 0.1 x10^3/uL Basophils # (Auto) 0.0 x10^3/uL Sodium Level 139 mmol/L Potassium Level 4.0 mmol/L Chloride Level 101 mmol/L Carbon Dioxide Level 29 mmol/L Anion Gap 9 Blood Urea Nitrogen 19 mg/dL Creatinine 0.8 mg/dL Estimated GFR (Cockcroft-Gault) 75.3 BUN/Creatinine Ratio 24 Glucose Level 99 mg/dL Calcium Level 8.9 mg/dL Total Bilirubin 0.5 mg/dL Aspartate Amino Transf (AST/SGOT) 15 U/L Alanine Aminotransferase (ALT/SGPT) 13 U/L Alkaline Phosphatase 94 U/L Total Protein 7.2 g/dL Albumin 3.9 g/dL Albumin/Globulin Ratio 1.2 Lipase 52 U/L Urine Collection Type Clean catch Urine Color Yellow Urine Clarity Clear Urine pH 5.0 Urine Specific Nixon 1.015 Urine Protein Neg Urine Glucose (UA) Neg mg/dL Urine Ketones (Stick) Trace mg/dL Urine Blood Trace Urine Nitrite Neg Urine Bilirubin Neg Urine Urobilinogen Dipstick 0.2 mg/dL Urine Leukocyte Esterase Neg Urine RBC Occ /HPF Urine WBC 0 /HPF Urine Squamous Epithelial Cells Few /LPF Urine Bacteria 0 /HPF Urine Mucus Mod /LPF Current Medications Medications (Trade) Dose Ordered Sig/Papito Route PRN Reason Start Time Stop Time Status Last Admin Dose Admin Fentanyl Citrate (Fentanyl 2ml Vial) 50 mcg 1X ONCE IVP 08/24/21 15:30 08/24/21 15:31 DC 08/24/21 15:38 Ondansetron HCl (Zofran) 4 mg 1X ONCE IVP 08/24/21 15:30 08/24/21 15:31 DC 08/24/21 15:37 Ondansetron HCl (Zofran) 4 mg STK-MED ONCE .ROUTE 08/24/21 15:24 08/24/21 15:24 DC Fentanyl Citrate (Fentanyl 2ml Vial) 100 mcg STK-MED ONCE .ROUTE 08/24/21 15:24 08/24/21 15:25 DC Iohexol (Omnipaque 350 Mg/ml) 100 ml 1X ONCE IV 08/24/21 15:30 08/24/21 15:31 DC 08/24/21 15:50 Info (Do NOT chart on this entry -- for MONITORING) 1 each PRN DAILY PRN MC SEE COMMENTS 08/24/21 15:30 08/26/21 15:29 Ketorolac Tromethamine (Toradol 30mg Vial) 30 mg 1X ONCE IVP 08/24/21 16:15 08/24/21 16:17 DC 08/24/21 16:22 Vital Signs: Vital Signs Date Time Temp Pulse Resp B/P (MAP) Pulse Ox O2 Delivery O2 Flow Rate FiO2 08/24/21 18:38 72 18 109/70 (83) 98 08/24/21 17:37 72 19 109/70 (83) 98 08/24/21 17:07 71 15 122/83 (96) 100 08/24/21 16:24 80 23 115/69 (84) 97 Room Air 08/24/21 16:08 18 98 Room Air 08/24/21 15:55 96 17 120/83 (95) 98 08/24/21 15:38 24 98 Room Air 08/24/21 15:34 84 24 111/64 (80) 97 08/24/21 15:01 98.5 90 24 126/81 (96) 97 Room Air Vital Signs Date Time Temp Pulse Resp B/P (MAP) Pulse Ox O2 Delivery O2 Flow Rate FiO2 08/24/21 15:38 24 98 Room Air 08/24/21 15:01 98.5 90 126/81 (96) (KOBI MARION LOAN EXPEDITOR) EKG: EKG: [] (KOBI MARION LOAN EXPEDITOR) Radiology/Procedures: Radiology/Procedures: REASON: abd pain. hx of colon cancer with colon resection 75mls omni 350 PROCEDURE: CT ABD PELV W/ IV CONTRST ONLY CT abdomen and pelvis with contrast PQRS statement: CT scans at this facility use dose reduction including either automated exposure control, iterative reconstructions, and /or weight based radiation dosing via mA and kV modification when appropriate to reduce radiation dose to as low as reasonably achievable. HISTORY: Abdominal pain. History of colon cancer with colectomy. Contrast: 75 mL Omnipaque 350 intravenous contrast. COMPARISON: CT abdomen and pelvis March 26, 2021 Abdomen findings: Lumbar disc bulges and disc height loss with spinal canal stenoses. Lung bases unremarkable. Mild dilation of the bile ducts likely related to cholecystectomy similar to prior imaging. 1.5 cm left hepatic lobe cyst is stable. Kidneys, adrenals, pancreas, spleen unremarkable. Postoperative change of vertical sleeve partial gastrectomy. There is a new umbilical abdominal wall hernia containing small bowel loops is hernia sac measures 6 x 3 cm with a wide mouth, no obstruction or inflammation of the herniated segments of bowel. Rectosigmoid colectomy with colorectal anastomosis. Surgical change at the ileocecal junction with anastomosis, appendix surgically absent. No bowel obstruction. There is luminal collapse and wall thickening of the cecum through the hepatic flexure which is new. No abdominal fluid or adenopathy. Pelvis findings: Hysterectomy. Ovaries absent or markedly atrophic. Bladder, lower rectum and bones are unremarkable. No pelvic fluid or adenopathy. IMPRESSION: 1. Luminal collapse and wall thickening of the right-sided colon may represent colitis. No bowel obstruction. 2. Post surgical changes as scribed above. 3. There is a new 6 x 3 cm wide mouth umbilical ventral abdominal hernia containing small bowel loops. There is no obstruction or inflammation of the herniated segments of bowel. 4. Other stable chronic findings as described above. Electronically signed by: Savanah Gilliland MD (08/24/2021 4:12 PM) [facility] DICTATED AND SIGNED BY: SAVANAH GILLILAND MD DATE: 08/24/21 1605 CC: KOBI MARION APRN; NATANAEL GUZMAN ~MTH0 0[] (KOBI MARION APRN) Heart Score: C/O Chest Pain: N/A Risk Factors: Risk Factors: DM, Current or recent (<one month) smoker, HTN, HLP, family history of CAD, obesity. Risk Scores: Score 0 - 3: 2.5% MACE over next 6 weeks - Discharge Home Score 4 - 6: 20.3% MACE over next 6 weeks - Admit for Clinical Observation Score 7 - 10: 72.7% MACE over next 6 weeks - Early Invasive Strategies (KOBI MARION APRN) Course & Med Decision Making: Course & Med Decision Making Pertinent Labs and Imaging studies reviewed. (See chart for details) 1800 spoke to patient and significant other at the bedside informed patient of lab results and radiological results. Discussed patient going home with negative results patient is agreeable to going home and following up with Dr. Armstrong her GI specialist on Friday. Return to the emergency department for increased abdominal pain, nausea vomiting or diarrhea, inability to keep fluids down, fever or chills, or unable to keep medications down. (KOBI MARION APRN) Dragon Disclaimer: Dragon Disclaimer: This electronic medical record was generated, in whole or in part, using a voice recognition dictation system. (KOBI MARION APRN) Attending Co-Sign The patient was seen and interviewed as well as examined at the bedside. The chart was reviewed. The case was discussed. Agree with the plan of care. (LISA LANE DO) Departure Departure: Impression: Primary Impression: Abdominal pain Qualified Codes: R10.30 - Lower abdominal pain, unspecified Disposition: HOME / SELF CARE / HOMELESS Condition: STABLE Referrals: NATANAEL GUZMAN (PCP) Patient Instructions: Abdominal Pain Additional Instructions: Return to the emergency department for increased pain, blood in your stool, increased nausea vomiting diarrhea, or fever or chills Hydrocodone 1 tablet every 6 hours as needed for severe pain Continue current medications as prescribed Scripts Hydrocodone Bit/Acetaminophen (HYDROCODONE-APAP 5-325 ) 1 Each Tablet 1 TAB PO PRN Q6HRS PRN for PAIN, #10 TAB 0 Refills Prov: KOBI MARION APRN 08/24/21 KOBI MARION APRN Aug 24, 2021 15:[address] DO Aug 25, 2021 06:55
[2021-08-24 16:00] LABS: CALCIUM 8.9 mg/dL (8.5-10.1); CREATININE 0.8 mg/dL (0.6-1.0); GFR 75.3
[2021-08-24 16:06] LABS: ALBUMIN 3.9 g/dL (3.4-5.0); ALBUMIN/GLOBULIN RATIO 1.2 (1.0-1.7); TOTAL BILIRUBIN 0.5 mg/dL (0.2-1.0); TOTAL PROTEIN 7.2 g/dL (6.4-8.2)
--- NOTE | 2021-08-24 16:14 | RAD ---
CT abdomen and pelvis with contrast PQRS statement: CT scans at this facility use dose reduction including either automated exposure cont rol, iterative reconstructions, and /or weight based radiation dosing via mA and kV modification when appropriate to reduce radiation dose to as low as reasonably achievable. HISTORY: Abdominal pain. History of colon cancer with colectomy. Contrast: 75 mL Omnipaque 350 intravenous contrast. COMPARISON: CT abdomen and pelvis March 26, 2021 Abdomen findings: Lumbar disc bulges and disc height loss with spinal canal stenoses. Lung bases unre markable. Mild dilation of the bile ducts likely related to cholecystectomy similar to prior imaging. 1.5 cm left hepatic lobe cyst is stable. Kidneys, adrenals, pancreas, spleen unremarkable. Postopera tive change of vertical sleeve partial gastrectomy. There is a new umbilical abdominal wall hernia co ntaining small bowel loops is hernia sac measures 6 x 3 cm with a wide mouth, no obstruction or infla mmation of the herniated segments of bowel. Rectosigmoid colectomy with colorectal anastomosis. Surgi em change at the ileocecal junction with anastomosis, appendix surgically absent. No bowel obstructi on. There is luminal collapse and wall thickening of the cecum through the hepatic flexure which is n ew. No abdominal fluid or adenopathy. Pelvis findings: Hysterectomy. Ovaries absent or markedly atrophic. Bladder, lower rectum and bones a re unremarkable. No pelvic fluid or adenopathy. IMPRESSION: 1. Luminal collapse and wall thickening of the right-sided colon may represent colitis. No bowel obst ruction. 2. Post surgical changes as scribed above. 3. There is a new 6 x 3 cm wide mouth umbilical ventral abdominal hernia containing small bowel loops . There is no obstruction or inflammation of the herniated segments of bowel. 4. Other stable chronic findings as described above. Electronically signed by: Meng Gilliland MD (08/24/2021 4:12 PM) [facility]
[2021-08-24] MEDS ORDERED: KETOROLAC 30 MG/ML VIAL. IVP ONE (16:15)
[2021-08-24 16:46] LABS: BACTERIA,URINE 0 /HPF (0-FEW); BILIRUBIN,URINE NEG (NEG); CLARITY,URINE CLEAR; COLOR,URINE YELLOW; GLUCOSE,URINE NEG (NEG); NITRITE,URINE NEG (NEG); RBC,URINE OCC /HPF (0-2); SQUAMOUS EPITHELIAL CELL,UR FEW /LPF; UROBILINOGEN,URINE 0.2 mg/dL (0.2 mg/dL); WBC,URINE 0 /HPF (0-4)
[2021-08-24 17:24] LABS: FECAL OB PT NEGATIVE (NEG)
[2021-08-24] MEDS ORDERED: HYDR-2155 PO (18:16)
[2021-08-24 18:38] VITALS: BP 109/70
== END 2021-08-24 18:43 | disposition home or self-care (01) ==
LOC: ER 14:53
DX: R10.30 Lower abdominal pain, unspecified (principal); Z90.49 Acquired absence of other specified parts of digestive tract; Z90.710 Acquired absence of both cervix and uterus
CPT/HCPCS: 36415; 74177; 80053; 81001; 82274; 83690; 85025; 96374; 96375; 99285; J1885; J2405; J3010; Q9967

== ENCOUNTER → 2021-08-24 | Outpatient (CLI) | payer OTHER ==
[~2021-08-24] MED LIST changes: +HYDR-2155 PO; +HYDR-2759 PO
--- NOTE | 2021-08-24 14:37 | RAD ---
EXAM: Left ankle, 3 views. HISTORY: Fracture follow-up. COMPARISON: 07/14/2021 FINDINGS: 3 views of the left ankle are obtained. There has been slight interval healing of a nondisp laced lateral malleolar fracture. The fracture line is slightly less distinct compared to the prior e xam. There is a tiny ossicle adjacent to the lateral hindfoot, likely due to an avulsion fracture. Th ere has been no interval healing in location. The ankle mortise is intact. There is no osteochondral lesion. IMPRESSION: 1. Slight interval healing of a lateral wall fracture. 2. No change in a small displaced avulsion fracture fragment along the lateral hindfoot. Electronically signed by: Elizabeth Salinas MD (08/24/2021 2:34 PM) [id number]
== END ==
LOC: RAD 13:59
PROVIDERS: ATTEND Podiatrist
DX: S82.65XD Nondisplaced fracture of lateral malleolus of left fibula, subsequent encounter for closed fracture with routine healing (principal); X58.XXXD Exposure to other specified factors, subsequent encounter
CPT/HCPCS: 73610